=== PATIENT | male | born 1955 | race Caucasian/White ===

== ENCOUNTER 2023-09-23 22:32 | Inpatient (IN) | payer OTHER, MEDICARE, SELFPAY ==
--- NOTE | 2023-09-23 23:12 | US_ITS ---
INDICATION: Choledocholithiasis EXAMINATION: Ultrasound US Abdomen RUQ (limited) TECHNIQUE: Hernadez scale and color doppler imaging was performed of the right upper quadrant. COMPARISON: None. FINDINGS: LIVER: 16.9 cm Hepatopedal portal flow. Diffuse increased echogenicity. Benign 2.7 cm right hepatic cyst.. There is no free fluid. GALLBLADDER AND BILIARY TREE: Nondistended gallbladder with mild dependent sludge. 2 mm gallbladder wall. No pericholecystic fluid or gallbladder wall thickening is demonstrated. The proximal common bile duct measures 7 mm, which is within normal limits for the patient''s age. Songraphic Yu''s sign: None PANCREAS: No focal abnormality is demonstrated in the pancreas. No pancreatic ductal dilatation. RIGHT KIDNEY: 12.0 cm in length. No hydronephrosis. No shadowing nephrolithiasis. Normal cortical echogenicity without focal thinning or scarring. No evidence of cystic or solid mass. Trace perinephric fluid. US/Gallbladder IMPRESSION: Distended gallbladder with mild dependent sludge. No evidence of cholecystitis. Echogenic liver as can be seen with hepatic steatosis. Trace fluid along the right kidney which is nonspecific but can be seen with pyelonephritis. Correlate with urine. Electronically Signed: Todd Aguirre MD at 1:51 EDT ,
--- NOTE | 2023-09-23 23:16 | CON.PCM.GI_ITS ---
HPI Consult Data Date of Consult: 09/23/23 HPI Narrative Reason for Consultation: Obstructive jaundice and pancreatitis HPI Narrative: SOLEDAD GRIFFITHS, is a 67 M who presents as a transfer from outside hospital after being diagnosed with acute pancreatitis and cholestatic hepatitis with jaundice. In 02/2023 he was originally diagnosedwith Cholelithasis with concern Acute Cholecystitis at that time with ongoing epigastric and RUQ pain referred to Surgery.he recovered from that episode but today he presents with worsening abdominal pain to the [facility]. He notes that he has had several of these episodes but this time the episode came on yesterday prior earlier in the morning with nausea without emesis with no fevers or chills and at its worst the pain was aching, dull and sharp intermittently rated 8-9 out of 10 in severity. Work-up in the OSH ED included: VS initial: BP 162/87, HR 70, 91% on RA, RR 16, AF, EKG with SR without acute evidence of ischemia, CBC with WBC 12.2, hemoglobin 15.7, platelet 261 with left shift, CMP with sodium 138, potassium 3.8, chloride 103, CO2 27, glucose 137, BUN/creatinine 21/1.13, GFR greater than 60, AST/ALT 651/832, total bilirubin 5.3, direct bilirubin 4.3, alk phos 167, lipase 11,850, urinalysis with specific remedy 1.015, bilirubin 1, blood 50, urobilinogen 1 otherwise unremarkable, CT abdomen pelvis with contrast with mild stranding in the enlargement of the pancreatic head with findings suspicious of pancreatitis, stranding adjacent to the duodenum presumably secondary to adjacent suspected pancreatitis alternatively could represent duodenitis with gallbladder present. [facility] 02/25/2023 gallbladder ultrasound with cholelithiasis and gallbladder wall thickening with findings consistent with acute cholecystitis. Most recent CMP prior to this presentation 02/25/2023 at the same facility with AST/ALT 17/18, alk phos 67, bilirubin total 0.5, BUN/creatinine 22/1.33. At OSH Medications given: 0.5 mg IV dilaudid, 750 mL NS, IV zosyn. [facility] Medical History (Updated 09/24/23 @ 08:[address] Ignacio Mays MD) Chronic back pain Kidney stones Speech impairment Home Medications NK 09/23/23 [History Last Taken Unknown] Allergy/AdvReac Type Severity Reaction Status Date / Time No Known Allergies Allergy Verified 09/23/23 23:37 Family History (Updated 09/23/23 @ 23:[address] Keshia Mustfaa MD) Mother No problems noted. Father Heart disease Hypertension CAD (coronary artery disease) Myocardial infarction Surgical History (Updated 09/23/23 @ 23:[address] Keshia Mustafa MD) History of back surgery S/P inguinal hernia repair Social History (Updated 09/23/23 @ 23:[address] Keshia Mustafa MD) household members: spouse Smoking Status: Never smoker alcohol intake: never substance use type: does not use ROS ROS Narrative Admission Review of Systems: CONSTITUTIONAL: No weight loss, fever, chills, + weakness or fatigue. HEENT: Eyes: No visual loss, blurred vision, double vision or yellow sclerae. Ears, Nose, Throat: No hearing loss, sneezing, congestion, runny nose or sore throat. SKIN: No rash or itching, lesions, wounds. CARDIOVASCULAR: No chest pain, chest pressure or chest discomfort, palpitations, edema, orthopnea, syncopal events. RESPIRATORY: No shortness of breath, cough or sputum, wheezing, hemoptysis. GASTROINTESTINAL: + anorexia, nausea, abdominal pain. No vomiting. No recent diarrhea (had prior), melena, BRBPR. GENITOURINARY: No dysuria, frequency, urgency or retention. NEUROLOGICAL: No headache, dizziness, syncope, paralysis, ataxia, numbness or tingling in the extremities, focal weakness, change in bowel or bladder control, seizure. MUSCULOSKELETAL: + muscle, back pain, joint pain or stiffness. HEMATOLOGIC: No anemia, bleeding or bruising. LYMPHATICS: No enlarged nodes. No history of splenectomy. PSYCHIATRIC: No history of depression or anxiety. ENDOCRINOLOGIC: No reports of sweating, cold or heat intolerance. No polyuria or polydipsia. ALLERGIES: No history of asthma, hives, eczema or rhinitis. Physical Exam Narrative Physical Examination: General: Awake, alert, oriented x 3 and cooperative, seated upright in the chair, rates pain 5/10, noted speech impediment which she reports is chronic. Skin: Normal color, normal turgor, no icterus, no cyanosis. HEENT: AT/NC, EOMI, PERRLA, moderately dry MM, no carotid bruits or JVD noted. Lungs: CTA bilaterally, moderate effort, mild decrease BL bases, no rales, ronchi or wheezing. Heart: Regular rate and rhythm; no gallop, rub audible. Abdomen: Soft, discomfort to the right upper quadrant and epigastric region but no rebound and no guarding, no appreciated distention, mildly distant bowel sounds, no appreciated HSM. For CT scan and lab values would expect much more significant pain on evaluation but discussed with patient and his any is a very high threshold. Extremities: No cyanosis, clubbing, or edema. Neurological: Patient awake, alert, oriented as noted, cognitive function intact; pupils equally reactive to light and accommodation, cranial nerves grossly normal, moving all 4 extremities, no focal deficits, strength mildly to moderately globally decreased. Psychiatric: Affect appears mildly flat, fatigued, no acute evidence of depres sive or anxiety feelings. Lab / Micro Data 09/24/23 05:13 09/24/23 05:13 Labs: Laboratory Results - last 24 hr 09/24/23 05:13: WBC 11.0, RBC 4.69, Hgb 14.1, Hct 41.9, MCV 89.3, MCH 30.1, MCHC 33.7, RDW Std Deviation 43.4, RDW Coeff of Akil 13.3, Plt Count 226, MPV 9.0, Immature Gran % (Auto) 0.500, Neut % (Auto) 86.7 H, Lymph % (Auto) 7.4 L, [place] % (Auto) 5.2, Eos % (Auto) 0.0, Baso % (Auto) 0.2, Absolute Neuts (auto) 9.6 H, Absolute Lymphs (auto) 0.82 L, Nucleated RBC % 0, Sodium 141, Potassium 3.9, Chloride 111 H, Carbon Dioxide 24.0, Anion Gap 6, BUN 16, Creatinine 1.03, Estim Creat Clear Calc 85.77, Est GFR (MDRD) Af Amer 93, Est GFR (MDRD) Non-Af 77, BUN/Creatinine Ratio 15.5, Glucose 125 H, Calcium 8.3 L, Total Bilirubin 5.40 H, AST 399 H, ALT 731 H, Alkaline Phosphatase 165 H, Total Protein 5.9 L, Albumin 3.4, Globulin 2.5, Albumin/Globulin Ratio 1.4, Lipase 3562 H Imaging Radiology Impression Gallbladder Ultrasound 09/23/23 23:12 IMPRESSION: Distended gallbladder with mild dependent sludge. No evidence of cholecystitis. Echogenic liver as can be seen with hepatic steatosis. Trace fluid along the right kidney which is nonspecific but can be seen with pyelonephritis. Correlate with urine. Electronically Signed: Todd Aguirre MD at 1:51 EDT , Assessment & Plan Assessment/Plan (1) Choledocholithiasis with acute cholecystitis with obstruction: PLAN: Plan 67 y/o M with past medical history of Cholelithasis with concern Acute Cholecystitis at that time with ongoing epigastric and RUQ pain. He presents to the [facility] as direct admission following initial presentation at [facility] ED on 09/23/23 secondary to acute severe onset epigastric and recurrent RUQ abdominal pain, worsening ongoing prompting eventual ED evaluation. Acute choledocholithiasis with acute cholecystitis with obstruction with resulting hyperbilirubinemia, transaminitis and concurrent acute pancreatitis: maintain on aggressive IV fluids, will trend CBC, CMP as well as lipase, maintain n.p.o. status,. Patient will need to undergo ERCP with removal of common bile duct stone. He will likely get a temporary stent placement as he is scheduled for cholecystectomy on 09/28/2023. Continue current regimen. He was explained alternatives, risk, benefits including not withstanding bleeding, infection, sepsis, perforation, need for emergent surgery and . He will have an ASA of 3. Charges/Coding Visit Charges Inpatient E&M: 24559 Init Hosp L3
--- NOTE | 2023-09-23 23:16 | HP.PCM.HOS_ITS ---
HPI - General General Date of Admission: 09/23/23 Date of Service: 09/23/23 Chief Complaint: Abdominal pain, nausea. HPI Narrative The patient is a 67 y/o M w/ PMHx: 02/2023 Diagnosed with Cholelithasis with concern Acute Cholecystitis at that time with ongoing epigastric and RUQ pain referred to Surgery; however from review of [facility] records delayed any intervention secondary to concerns for missed work potential otherwise healthy on no chronic medications who presents to the [facility] as direct admission following initial presentation at [facility] ED on 09/23/23 secondary to acute severe onset epigastric and recurrent RUQ abdominal pain, worsening ongoing prompting eventual ED evaluation. He notes that he has had several of these episodes but this time the episode came on yesterday prior earlier in the morning with nausea without emesis with no fevers or chills and at its worst the pain was aching, dull and sharp intermittently rated 8-9 out of 10 in severity. Following pain medication in the outside facility ED he is currently reporting his pain 5 out of 10 in severity. He denies any current nausea. Work-up in the OSH ED included: VS initial: BP 162/87, HR 70, 91% on RA, RR 16, AF, EKG with SR without acute evidence of ischemia, CBC with WBC 12.2, hemoglobin 15.7, platelet 261 with left shift, CMP with sodium 138, potassium 3.8, chloride 103, CO2 27, glucose 137, BUN/creatinine 21/1.13, GFR greater than 60, AST/ALT 651/832, total bilirubin 5.3, direct bilirubin 4.3, alk phos 167, lipase 11,850, urinalysis with specific remedy 1.015, bilirubin 1, blood 50, urobilinogen 1 otherwise unremarkable, CT abdomen pelvis with contrast with mild stranding in the enlargement of the pancreatic head with findings suspicious of pancreatitis, stranding adjacent to the duodenum presumably secondary to adjacent suspected pancreatitis alternatively could represent duodenitis with gallbladder present with last imaging noted from [facility] 02/25/2023 gallbladder ultrasound with cholelithiasis and gallbladder wall thickening with findings consistent with acute cholecystitis. Most recent CMP prior to this presentation 02/25/2023 at the same facility with AST/ALT 17/18, alk phos 67, bilirubin total 0.5, BUN/creatinine 22/1.33. At OSH Medications given: 0.5 mg IV dilaudid, 750 mL NS, IV zosyn. [facility] Medical History (Updated 09/23/23 @ 23:[address] Keshia Mustafa MD) Chronic back pain Speech impairment Home Medications NK 09/23/23 [History Last Taken Unknown] Allergy/AdvReac Type Severity Reaction Status Date / Time No Known Allergies Allergy Verified 09/23/23 23:37 Family History (Updated 09/23/23 @ 23:[address] Keshia Mustafa MD) Mother No problems noted. Father Heart disease Hypertension CAD (coronary artery disease) Myocardial infarction Surgical History (Updated 09/23/23 @ 23:[address] Keshia Mustafa MD) History of back surgery S/P inguinal hernia repair Social History (Updated 09/23/23 @ 23:[address] Keshia Mustafa MD) household members: spouse Smoking Status: Never smoker alcohol intake: never substance use type: does not use ROS ROS Narrative Admission Review of Systems: CONSTITUTIONAL: No weight loss, fever, chills, + weakness or fatigue. HEENT: Eyes: No visual loss, blurred vision, double vision or yellow sclerae. Ears, Nose, Throat: No hearing loss, sneezing, congestion, runny nose or sore throat. SKIN: No rash or itching, lesions, wounds. CARDIOVASCULAR: No chest pain, chest pressure or chest discomfort, palpitations, edema, orthopnea, syncopal events. RESPIRATORY: No shortness of breath, cough or sputum, wheezing, hemoptysis. GASTROINTESTINAL: + anorexia, nausea, abdominal pain. No vomiting. No recent diarrhea (had prior), melena, BRBPR. GENITOURINARY: No dysuria, frequency, urgency or retention. NEUROLOGICAL: No headache, dizziness, syncope, paralysis, ataxia, numbness or tingling in the extremities, focal weakness, change in bowel or bladder control, seizure. MUSCULOSKELETAL: + muscle, back pain, joint pain or stiffness. HEMATOLOGIC: No anemia, bleeding or bruising. LYMPHATICS: No enlarged nodes. No history of splenectomy. PSYCHIATRIC: No history of depression or anxiety. ENDOCRINOLOGIC: No reports of sweating, cold or heat intolerance. No polyuria or polydipsia. ALLERGIES: No history of asthma, hives, eczema or rhinitis. Physical Exam Narrative Physical Examination: General: Awake, alert, oriented x 3 and cooperative, seated upright in the chair, rates pain 5/10, noted speech impediment which she reports is chronic. Skin: Normal color, normal turgor, no icterus, no cyanosis. HEENT: AT/NC, EOMI, PERRLA, moderately dry MM, no carotid bruits or JVD noted. Lungs: CTA bilaterally, moderate effort, mild decrease BL bases, no rales, ronchi or wheezing. Heart: Regular rate and rhythm; no gallop, rub audible. Abdomen: Soft, discomfort to the right upper quadrant and epigastric region but no rebound and no guarding, no appreciated distention, mildly distant bowel sounds, no appreciated HSM. For CT scan and lab values would expect much more significant pain on evaluation but discussed with patient and his any is a very high threshold. Extremities: No cyanosis, clubbing, or edema. Neurological: Patient awake, alert, oriented as noted, cognitive function intact; pupils equally reactive to light and accommodation, cranial nerves grossly normal, moving all 4 extremities, no focal deficits, strength mildly to moderately globally decreased. Psychiatric: Affect appears mildly flat, fatigued, no acute evidence of depressive or anxiety feelings. Assessment & Plan Assessment/Plan (1) Choledocholithiasis with acute cholecystitis with obstruction: PLAN: Plan The patient is a 67 y/o M w/ PMHx: 02/2023 Diagnosed with Cholelithasis with co ncern Acute Cholecystitis at that time with ongoing epigastric and RUQ pain referred to Surgery; however from review of [facility] records delayed any intervention secondary to concerns for missed work potential otherwise healthy on no chronic medications who presents to the [facility] as direct admission following initial presentation at [facility] ED on 09/23/23 secondary to acute severe onset epigastric and recurrent RUQ abdominal pain, worsening ongoing prompting eventual ED evaluation. #1. Acute choledocholithiasis with acute cholecystitis with obstruction with resulting hyperbilirubinemia, transaminitis and concurrent acute pancreatitis: Will admit to medical surgical floor, maintain on aggressive IV fluids, will trend CBC, CMP as well as lipase, maintain n.p.o. status, continue consultation with gastroenterology and general surgery for ERCP as well as follow-up cholecystectomy once symptoms improving and lipase trends downward, maintain on IV PPI, maintain on IV zosyn, IV/po pain control, will repeat GB US per discussion with Dr. Mays. #2. Elevated BP without HTN diagnosis: Outside facility BP elevated above goal, potentially pain related given acute presentation as noted, continue to monitor and if more consistent with hypertension initiate oral regimen, as needed IV hydralazine in the interim. #3. DVT prophylaxis: SCDs, defer any chemoprophylaxis given planned surgery as noted. Charges/Coding Visit Charges Inpatient E&M: 02091 Init Hosp L2
[2023-09-23 23:40] VITALS: BP 145/89; PULSE 61; RESP 16; TEMP 36.9; O2SAT 95
[2023-09-24] VITALS (13 sets, daily range): BP systolic 114–168; BP diastolic 53–87; PULSE 66–82; RESP 16–18; TEMP 36.5–37.3; O2SAT 91–100; BMI 29.4
[2023-09-24] MEDS: Pantoprazole Sodium 40 MG in 0.9% Normal Saline (100mL MB+) 100 ML 330 MG IV ×3 (01:12→21:03)
[2023-09-24] MEDS: 0.9% Normal Saline (1000mL) 1,000 ML 999 ML IV (01:13)
[2023-09-24] MEDS: 0.9% Saline Lock 10 ML Syringe IV ×4 (01:29→13:33)
[2023-09-24] MEDS: Morphine 2 MG/ML Syringe IV (01:29)
[2023-09-24] MEDS: Ondansetron 4 MG/2 ML Vial IV (02:08)
[2023-09-24] MEDS: 0.9% Normal Saline (1000mL) 1,000 ML 150 ML IV ×4 (02:36→19:49)
[2023-09-24] MEDS: Piperacil/Tazobactam 3.375 GM in 0.9% Normal Saline (50mL MB+) 50 ML IV ×3 (05:33→22:34)
[2023-09-24 05:36] LABS: Absolute Lymphocyte Count 0.82 X10^3/uL (0.83-4.51); Absolute Neutrophil Count 9.6 X10^3/uL (2.0-7.7); Basophil# 0.02 X10^3/uL; Basophil% 0.2 % (0-1); Hematocrit 41.9 % (40-54); Hemoglobin 14.1 g/dL (13.0-16.5); Lymphocyte # 0.82 X10^3/ul (0.83-4.51); Lymphocyte % 7.4 % (19-41); Mean Corp Hgb Conc 33.7 g/dL (32-36); Mean Corpuscular Hgb 30.1 pg (27.0-32.0); Mean Corpuscular Volume 89.3 fL (80-94); Monocyte# 0.57 X10^3/uL; Monocyte% 5.2 % (0-10); NRBC Flagged by Analyzer 0 % (0-5); Neutrophil # 9.55 X10^3/uL (2.7-7.7); Neutrophil % 86.7 % (47-70); Platelet Count 226 K/mm3 (150-450); RBC Distribution Width CV 13.3 % (11.6-14.6); RBC Distribution Width SD 43.4 fl (35.1-43.9); Red Blood Count 4.69 M/mm3 (4.6-6.2)
--- NOTE | 2023-09-24 05:55 | EKGRS_ITS ---
Test Reason : AM EKG Blood Pressure : / mmHG Vent. Rate : 067 BPM Atrial Rate : 067 BPM P-R Int : 200 ms QRS Dur : 082 ms QT Int : 410 ms P-R-T Axes : 047 035 037 degrees QTc Int : 433 ms Sinus rhythm with Premature atrial complexes Otherwise normal ECG No previous ECGs available Confirmed by MIGUELINA KESSLER, SUSU ([id number]), advertising editor IBRAHIMA JOSEPH ([id number]) on 09/25/2023 9:42:15 AM Referred By: DEEP Confirmed By:SUSU MCINTYRE MD
[2023-09-24 06:29] LABS: ALB/GLOB Ratio 1.4 RATIO (0.9-2.4); AST(SGOT) 399 U/L (15-37); Alanine Aminotransfer ALT/SGPT 731 U/L (16-61); Albumin, Serum 3.4 g/dL (3.2-5.0); Alkaline Phosphatase 165 U/L (45-117); Anion Gap 6 (5-15); BUN 16 mg/dL (7-18); BUN/Creat Ratio 15.5 RATIO (10-20); Calcium,Total 8.3 mg/dL (8.5-10.1); Chloride 111 mmol/L (98-107); Creatinine, Serum 1.03 mg/dL (0.70-1.30); EST Glomerular Filtration Rate 77 mL/min (>60); Est Glom Filt Rate - Afr Amer 93 mL/min (>60); Estimated Creatinine Clearance 85.77 ml/min; Globulin 2.5 g/dL (2.2-4.2); Glucose 125 mg/dL (74-106); Lipase 3562 U/L (13-75); Potassium 3.9 mmol/L (3.5-5.1); Protein, Total 5.9 g/dL (6.4-8.2); Sodium Level 141 mmol/L (136-145)
--- NOTE | 2023-09-24 07:56 | CON.PCM.SX_ITS ---
Assessment & Plan Assessment/Plan (1) Acute gallstone pancreatitis: PLAN: Patient is a 67-year-old male who presents on direct transfer from outside hospital with signs and symptoms consistent with acute gallstone pancreatitis. I had a lengthy conversation with patient regarding the normal physiology and the pathophysiology of his condition. This included hand drawings to illustrate relevant points. He expressed understanding after these drawings were made but seems anxious to be discharged already. I shared that we would first need to await gastroenterology evaluation for ERCP and then could consider cholecystectomy this admission. I strongly urged him to allow us to proceed as recommended given this is his second indication for surgery after a prior evaluation showed acute cholecystitis in February. He appears resigned to wait this out. Will await the results of ERCP from today. Recommend trending CMP and lipase. Will follow with serial abdominal exams. Tentatively planning for laparoscopic cholecystectomy with intraoperative cholangiogram 09/28/2023. Therefore patient should be held n.p.o. past midnight the evening before. HPI Consult Data Date of Consult: 09/24/23 HPI Narrative Reason for Consultation: Gallstone pancreatitis HPI Narrative: SOLEDAD GRIFFITHS, is a 67 M who presents to [place] as a direct transfer from [facility] where he presented with signs and symptoms of gallstone pancreatitis. He shares that his pain started on 09/22/2023. Initially denies nausea, but then states every time that he ate it made him feel sick. He shares that this pain was of lesser intensity than what he felt in February when he was diagnosed with cholecystitis, but the fact that it persisted is why he decided to seek evaluation. He denies any associated fevers or chills. Patient's ER workup was reportedly notable for hyperbilirubinemia of 5.3 and his LFTs were reported in the 5 and 600s. Lipase was greater than 1000. Patient has no significant past medical history but patient's prior surgical history includes open umbilical hernia repair with mesh as well as a left groin hernia. [facility] Medical History (Updated 09/24/23 @ 08:[address] Ignacio Mays MD) Chronic back pain Kidney stones Speech impairment Home Medications NK 09/23/23 [History Last Taken Unknown] Allergy/AdvReac Type Severity Reaction Status Date / Time No Known Allergies Allergy Verified 09/23/23 23:37 Family History (Updated 09/23/23 @ 23:[address] Keshia Mustafa MD) Mother No problems noted. Father Heart disease Hypertension CAD (coronary artery disease) Myocardial infarction Surgical History (Updated 09/23/23 @ 23:[address] Keshia Mustafa MD) History of back surgery S/P inguinal hernia repair Social History (Updated 09/23/23 @ 23:[address] Keshia Mustafa MD) household members: spouse Smoking Status: Never smoker alcohol intake: never substance use type: does not use Physical Exam Const alert and oriented x3 Eyes Eyes Narrative: Scleral icterus present Resp normal respiratory effort GI GI Narrative: Hirsute, limited periumbilical scar now well-healed, nondistended, soft, tender to palpation of the epigastrium with mild voluntary guarding Lab / Micro Data 09/24/23 05:13 09/24/23 05:13 Labs: Laboratory Results - last 24 hr 09/24/23 05:13: WBC 11.0, RBC 4.69, Hgb 14.1, Hct 41.9, MCV 89.3, MCH 30.1, MCHC 33.7, RDW Std Deviation 43.4, RDW Coeff of Akil 13.3, Plt Count 226, MPV 9.0, Immature Gran % (Auto) 0.500, Neut % (Auto) 86.7 H, Lymph % (Auto) 7.4 L, [place] % (Auto) 5.2, Eos % (Auto) 0.0, Baso % (Auto) 0.2, Absolute Neuts (auto) 9.6 H, Absolute Lymphs (auto) 0.82 L, Nucleated RBC % 0, Sodium 141, Potassium 3.9, Chloride 111 H, Carbon Dioxide 24.0, Anion Gap 6, BUN 16, Creatinine 1.03, Estim Creat Clear Calc 85.77, Est GFR (MDRD) Af Amer 93, Est GFR (MDRD) Non-Af 77, BUN/Creatinine Ratio 15.5, Glucose 125 H, Calcium 8.3 L, Total Bilirubin 5.40 H, AST 399 H, ALT 731 H, Alkaline Phosphatase 165 H, Total Protein 5.9 L, Albumin 3.4, Globulin 2.5, Albumin/Globulin Ratio 1.4, Lipase 3562 H Imaging Radiology Impression Gallbladder Ultrasound 09/23/23 23:12 IMPRESSION: Distended gallbladder with mild dependent sludge. No evidence of cholecystitis. Echogenic liver as can be seen with hepatic steatosis. Trace fluid along the right kidney which is nonspecific but can be seen with pyelonephritis. Correlate with urine. Electronically Signed: Todd Aguirre MD at 1:51 EDT ,
[2023-09-24] MEDS: proCHLORPERazine 10 MG/2 ML Vial 5 MG IV (07:57)
--- NOTE | 2023-09-24 09:01 | RAD_ITS ---
STUDY: X-RAY -ERCP REASON FOR EXAM: Male, 67 years old. ABD PAIN -- ERCP TECHNIQUE: 8 views of ERCP are available. COMPARISON: No relevant prior comparison study available FINDINGS: Endoscopy and cannulation were carried out by the referring physician. Small filling defects are seen in the proximal common bile duct could be due to air bubbles or retained stones which may be removed or not visualized on the subsequent images. The last image demonstrates questionable common bile duct stent or residual contrast. No radiologist was present during the examination. The fluoroscopy time was 25.9 seconds. The radiation dose is 83.4 mGy. RAD/ERCP Biliary/Pancreas IMPRESSION: ERCP as described above. Electronically Signed: Ran Knott MD at 13:19 EDT ,
--- NOTE | 2023-09-24 09:30 | CASEMGMT ---
RN?CM?PAINTER TUMBLING BARREL?CM?to room to meet with patient for initial transition planning/care coordination?assessment.?RN?CM?introduced self and role at [facility].? Pt voices understanding and consents to?assessment?at this time.? Pt resting in bed in no distress at this time.? Pt is A/O at this time and answers all questions appropriately.?? Care providers, pharmacy, and demographics verified/updated at this time. PCP: Dr Sergio Watson Specialists: pt does not know for sure Preferred Pharmacy: [facility] Retail Insurance: Medical [place] Prescription Benefit:?yes LNOK: , Izabela Living Arrangements: Lives w/his and 29-yr-old son in 2-story home w/4 steps to enter. Bedroom is on 2nd floor. Only one bathroom in home on 1st floor. Denies difficulty w/stairs. Transportation:?Pt states drives self and states no transportation concerns at this time.? also drives. DME: ? Denies using any DME. HHC/SNF: No hx of either. No needs identified. Pt wishes to return home and states has no concerns with going home at time of discharge.? Advised pt to ask for?CM?if any questions/concerns/needs arise.? Voices understanding. PLAN:??Home Mark BSN?RN?CM
--- NOTE | 2023-09-24 10:35 | NURSING ---
pt sent to ERCP
--- NOTE | 2023-09-24 13:00 | OP.ERCP_ITS ---
Patient Name: Dajuan Zimmer Procedure Date: 09/24/2023 12:05 PM Date of : 1955 Age: 67 Procedure: ERCP Indications: Common bile duct stone(s), Jaundice, Elevated liver enzymes, Acute pancreatitis Providers: Juan Parmar DO Medicines: Monitored Anesthesia Care Patient Profile: This is a 67 year old male. Refer to note in patient chart for documentation of history and physical. Patient has symptoms of acute right upper quadrant abdominal pain, acute epigastric abdominal pain and acute jaundice. This patient has no history of previous ERCP. This patient has no history of surgical alteration of the upper digestive tract anatomy. Complications: No immediate complications. Procedure: Pre-Anesthesia Assessment: - Prior to the procedure, a History and Physical was performed, and patient medications and allergies were reviewed. The patient is competent. The risks and benefits of the procedure and the sedation options and risks were discussed with the patient. All questions were answered and informed consent was obtained. Patient identification and proposed procedure were verified by the physician in the pre-procedure area. Mental Status Examination: alert and oriented. Airway Examination: normal oropharyngeal airway and neck mobility. Respiratory Examination: clear to auscultation. CV Examination: normal. Prophylactic Antibiotics: The patient does not require prophylactic antibiotics. Prior Anticoagulants: The patient has taken no anticoagulant or antiplatelet agents. ASA Grade Assessment: II - A patient with mild systemic disease. After reviewing the risks and benefits, the patient was deemed in satisfactory condition to undergo the procedure. The anesthesia plan was to use general anesthesia. Immediately prior to administration of medications, the patient was re-assessed for adequacy to receive sedatives. The heart rate, respiratory rate, oxygen saturations, blood pressure, adequacy of pulmonary ventilation, and response to care were monitored throughout the procedure. The physical status of the patient was re-assessed after the procedure. After obtaining informed consent, the scope was passed under direct vision. Throughout the procedure, the patient's blood pressure, pulse, and oxygen saturations were monitored continuously. The Duodenoscope was introduced through the mouth, and advanced to the duodenum and used to inject contrast into the bile duct and ventral pancreatic duct. The ERCP was accomplished without difficulty. The patient tolerated the procedure well. Scope In: 12:27:18 PM Scope Out: 12:48:41 PM Total Procedure Duration Time 0 hours 21 minutes 23 seconds Findings: The wire preparation machine tender film was normal. The esophagus was successfully intubated under direct vision. The scope was advanced to a normal major papilla in the descending duodenum without detailed examination of the pharynx, larynx and associated structures, and upper GI tract. The upper GI tract was grossly normal. The bile duct was deeply cannulated with the short-nosed traction sphincterotome. Contrast was injected. I personally interpreted the bile duct and pancreatic duct images. There was brisk flow of contrast through the ducts. Image quality was adequate. Contrast extended to the entire biliary tree. The upper third of the main bile duct contained one stone, which was 6 mm in diameter. The main bile duct was mildly dilated and locally dilated, with a stone causing an obstruction. The largest diameter was 7 mm. A straight Roadrunner wire was passed into the biliary tree. A 5 mm biliary sphincterotomy was made with a braided traction (standard) sphincterotome using ERBE electrocautery. The sphincterotomy oozed blood. The biliary tree was swept with a 12 mm balloon starting at the bifurcation. All stones were removed. One 10 Fr by 5 cm temporary stent was placed 5 cm into the common bile duct. Bile flowed through the stent. The stent was in good position. The ventral pancreatic duct was deeply cannulated with the short-nosed traction sphincterotome. Contrast was injected. Opacification of the entire pancreatic ductal system was successful. The maximum diameter of the ducts was 3 mm. The entire opacified area was normal. A 0.035 inch x 260 cm angled Hydra Jagwire was passed into the ventral pancreatic duct. A 5 mm ventral pancreatic sphincterotomy was made with a traction (standard) sphincterotome. There was no post-sphincterotomy bleeding. To find object(s) the ventral pancreatic duct was swept with a 6 mm balloon starting at the pancreatic duct in the body of the pancreas. Nothing was found. One 4 Fr by 5 cm temporary stent was placed 5 cm into the ventral pancreatic duct. Clear fluid flowed through the stent. The stent was in good position. Impression: - The entire main bile duct was mildly dilated, with a stone causing an obstruction. - Choledocholithiasis was found. Complete removal was accomplished by biliary sphincterotomy and balloon extraction. - A biliary sphincterotomy was performed. - The biliary tree was swept. - One temporary stent was placed into the common bile duct. - A pancreatic sphincterotomy was performed. - The ventral pancreatic duct was swept and nothing was found. - One temporary stent was placed into the ventral pancreatic duct. Procedure Code(s): --- Professional --- 29067, Endoscopic retrograde cholangiopancreatography (ERCP); with placement of endoscopic stent into biliary or pancreatic duct, including pre- and post-dilation and guide wire passage, when performed, including sphincterotomy, when performed, each stent [id number], 59, Endoscopic retrograde cholangiopancreatography (ERCP); with placement of endoscopic stent into biliary or pancreatic duct, including pre- and post-dilation and guide wire passage, when performed, including sphincterotomy, when performed, each stent [id number], Endoscopic retrograde cholangiopancreatography (ERCP); with removal of calculi/debris from biliary/pancreatic duct(s) 69424, 26, Combined endoscopic catheterization of the biliary and pancreatic ductal systems, radiological supervision and interpretation CPT copyright 2021 [employer]. All rights reserved. The codes documented in this report are preliminary and upon production control coordinating clerk review may be revised to meet current compliance requirements. Juan Pamrar DO 09/24/2023 12:59:53 PM This report has been signed electronically. Number of Addenda: 0 Note Initiated On: 09/24/2023 12:05 PM
--- NOTE | 2023-09-24 13:00 | OP.CCLET_ITS ---
09/24/2023 Sergio Watson Re : ERCP procedure for Dajuan Watson This procedure was performed on September. My impressions and recommendations are as follows: Impressions : - The entire main bile duct was mildly dilated, with a stone causing an obstruction. - Choledocholithiasis was found. Complete removal was accomplished by biliary sphincterotomy and balloon extraction. - A biliary sphincterotomy was performed. - The biliary tree was swept. - One temporary stent was placed into the common bile duct. - A pancreatic sphincterotomy was performed. - The ventral pancreatic duct was swept and nothing was found. - One temporary stent was placed into the ventral pancreatic duct. Recommendations : My findings are described in the full procedure note, which is enclosed. If I can be of further assistance, please feel free to contact me at . Sincerely, Juan Parmar, 09/24/2023 12:59:53 PM This report has been signed electronically.
--- NOTE | 2023-09-24 13:34 | PN_ITS ---
Subjective Subjective Patient seen and examined. He had no complaints. Abdominal pain had improved. Review of systems otherwise negative. He is due for ERCP and cholecystectomy today. He has remained hemodynamically stable. Objective Data Objective Data Vital Signs: Vital Signs Temp Pulse Resp BP Pulse Ox O2 Del Method 98.9 F 74 16 168/68 H 92 Room Air 09/24/23 13:15 09/24/23 13:15 09/24/23 13:15 09/24/23 13:15 09/24/23 13:15 09/24/23 13:15 Oxygen Delivery Method Room Air Weight: 217 lb 2.485 oz Body Mass Index (BMI) 29.4 Intake & Output: Intake and Output for Last 24 Hours 09/22/23 09/23/23 09/24/23 23:59 23:59 23:59 Intake Total 2270 / 2270 Balance 2270 / 2270 Lab / Micro Data 09/24/23 05:13 09/24/23 05:13 Labs: Laboratory Results - last 24 hr 09/24/23 05:13: WBC 11.0, RBC 4.69, Hgb 14.1, Hct 41.9, MCV 89.3, MCH 30.1, MCHC 33.7, RDW Std Deviation 43.4, RDW Coeff of Akil 13.3, Plt Count 226, MPV 9.0, Immature Gran % (Auto) 0.500, Neut % (Auto) 86.7 H, Lymph % (Auto) 7.4 L, [place] % (Auto) 5.2, Eos % (Auto) 0.0, Baso % (Auto) 0.2, Absolute Neuts (auto) 9.6 H, Absolute Lymphs (auto) 0.82 L, Nucleated RBC % 0, Sodium 141, Potassium 3.9, Chloride 111 H, Carbon Dioxide 24.0, Anion Gap 6, BUN 16, Creatinine 1.03, Estim Creat Clear Calc 85.77, Est GFR (MDRD) Af Amer 93, Est GFR (MDRD) Non-Af 77, BUN/Creatinine Ratio 15.5, Glucose 125 H, Calcium 8.3 L, Total Bilirubin 5.40 H, AST 399 H, ALT 731 H, Alkaline Phosphatase 165 H, Total Protein 5.9 L, Albumin 3.4, Globulin 2.5, Albumin/Globulin Ratio 1.4, Lipase 3562 H Radiography Diagnostic Testing: Radiology Impression Gallbladder Ultrasound 09/23/23 23:12 IMPRESSION: Distended gallbladder with mild dependent sludge. No evidence of cholecystitis. Echogenic liver as can be seen with hepatic steatosis. Trace fluid along the right kidney which is nonspecific but can be seen with pyelonephritis. Correlate with urine. Electronically Signed: Todd Aguirre MD at 1:51 EDT , Endo Retro Cholangiopancreatogram 09/24/23 09:01 IMPRESSION: ERCP as described above. Electronically Signed: Ran Knott MD at 13:19 EDT , Physical Exam Const alert, oriented x3, no apparent distress and well nourished General Appearance: cooperative and well developed HEENT normocephalic, head/scalp atraumatic, moist oral mucous membranes and oropharynx normal Eyes PERRL and EOMs intact bilaterally Neck no lymphadenopathy and supple Lymph Lymphatic: no lymphadenopathy noted and no lymphedema noted Resp normal respiratory effort, normal air movement and clear to auscultation bilaterally Cardio regular rate, regular rhythm, S1 normal heart sound, S2 normal heart sound and no murmurs Palpation: normal PMI GI normal to inspection, nondistended, normoactive bowel sounds GI Narrative: mild epigastric tenderness, no guarding or rebound tenderness. Extremity normal capillary refill, no clubbing, cyanosis or edema and no calf tenderness General Extremity: no tenderness to palpation of joints or extremities Skin General Skin Exam: no breakdown Neuro CN's II-XII intact bilaterally, no focal motor deficits, no sensory deficits noted and deep tendon reflexes 2+ bilaterally Motor Exam: strength 5/5 throughout Psych thought process normal and cooperative Appearance: appropriate Assessment & Plan Assessment/Plan (1) Acute gallstone pancreatitis: (2) Choledocholithiasis with acute cholecystitis with obstruction: PLAN: Plan #Choledocholithiasis with acute pancreatitis * Abdominal pain has improved. * WBC is 11. Total bilirubin is however 5.4. AST, ALT and ALP are elevated. * GI and general surgery on board. For ERCP and cholecystectomy today * ERCP showed choledocholithiasis with entire bile duct being mildly dilated due to the stone causing the obstruction. There was complete removal of the stone by biliary sphincterotomy and balloon extraction and 1 temporary stent was placed into the common bile duct and pancreatic sphincterotomy was performed. * #Acute gallstone pancreatitis * Currently NPO. Continue gentle hydration with IV fluids. IV morphine as needed for pain * #Hyperbilirubinemia: Likely due to choledocholithiasis. Bilirubin is 5.4. Should improve after ERCP and cholecystectomy. #Elevated blood pressure: Does not have known history of hypertension. Likely due to pain. Will monitor. DVT prophylaxis: SCDs Charges/Coding Visit Charges Inpatient E&M: 44997 Subs Hosp L2
[2023-09-24] MEDS: Acetaminophen 325 MG Tablet 650 MG PO (17:21)
[2023-09-24] MEDS: oxyCODONE 5 MG Tablet PO (20:23)
[2023-09-25 01:20] VITALS: BP 149/83; PULSE 74; RESP 16; TEMP 37.1; O2SAT 93
[2023-09-25] MEDS: oxyCODONE 5 MG Tablet PO ×2 (01:25→05:23)
[2023-09-25] MEDS: Ondansetron 4 MG/2 ML Vial IV ×3 (01:25→20:21)
[2023-09-25] MEDS: Acetaminophen 325 MG Tablet 650 MG PO ×4 (01:26→18:31)
[2023-09-25] MEDS: 0.9% Normal Saline (1000mL) 1,000 ML 150 ML IV ×4 (01:29→20:15)
[2023-09-25 05:10] VITALS: BP 150/79; PULSE 68; RESP 16; TEMP 36.7; O2SAT 92
[2023-09-25] MEDS: Piperacil/Tazobactam 3.375 GM in 0.9% Normal Saline (50mL MB+) 50 ML IV ×3 (05:16→22:12)
[2023-09-25] MEDS: proCHLORPERazine 10 MG/2 ML Vial 5 MG IV ×2 (05:22→13:40)
[2023-09-25 06:00] VITALS: BMI 29.4
[2023-09-25 07:09] LABS: Absolute Lymphocyte Count 1.21 X10^3/uL (0.83-4.51); Absolute Neutrophil Count 14.2 X10^3/uL (2.0-7.7); Basophil# 0.03 X10^3/uL; Basophil% 0.2 % (0-1); Eosinophil# 0.03 X10^3/uL; Eosinophils% 0.2 % (0-5); Hematocrit 41.1 % (40-54); Hemoglobin 13.4 g/dL (13.0-16.5); Lymphocyte # 1.21 X10^3/ul (0.83-4.51); Lymphocyte % 7.3 % (19-41); Mean Corp Hgb Conc 32.6 g/dL (32-36); Mean Corpuscular Hgb 29.3 pg (27.0-32.0); Mean Corpuscular Volume 89.9 fL (80-94); Mean Platelet Vol. 9.3 fl (6.2-12.0); Monocyte% 5.4 % (0-10); NRBC Flagged by Analyzer 0 % (0-5); Neutrophil # 14.23 X10^3/uL (2.7-7.7); Neutrophil % 86.1 % (47-70); Platelet Count 201 K/mm3 (150-450); RBC Distribution Width CV 13.3 % (11.6-14.6); RBC Distribution Width SD 43.9 fl (35.1-43.9); Red Blood Count 4.57 M/mm3 (4.6-6.2); White Blood Count 16.5 K/mm3 (4.4-11.0)
[2023-09-25 07:40] VITALS: BP 137/84; PULSE 72; RESP 18; TEMP 36.7; O2SAT 94
[2023-09-25] MEDS: Ensure Plus High Protein 120 ML LIQUID PO (07:41)
[2023-09-25] MEDS: Senna/Docusate Sodium 1 Tablet 2 TABLET PO (07:41)
--- NOTE | 2023-09-25 08:00 | PCM.PN.SRG ---
Subjective Subjective Patient states his abdominal pain is better than last night?patient rates it 2-3 out of 10. Patient white blood count 16?lipase pending and LFTs pending status post ERCP yesterday Objective Data Objective Data Vital Signs: Vital Signs Temp Pulse Resp BP Pulse Ox O2 Del Method 98.1 F 68 16 150/79 H 92 Room Air 09/25/23 05:10 09/25/23 05:10 09/25/23 05:10 09/25/23 05:10 09/25/23 05:10 09/25/23 05:10 Oxygen Delivery Method Room Air Weight: 217 lb 2.485 oz Body Mass Index (BMI) 29.4 Intake & Output: Intake and Output for Last 24 Hours 09/23/23 09/24/23 09/25/23 23:59 23:59 23:59 Intake Total 3997.5 / 4297.5 2430 / 2430 Output Total 250 / 250 Balance 3747.5 / 4047.5 2430 / 2430 Lab / Micro Data 09/25/23 05:41 09/24/23 05:13 Labs: Laboratory Results - last 24 hr 09/25/23 05:41: WBC 16.5 H, RBC 4.57 L, Hgb 13.4, Hct 41.1, MCV 89.9, MCH 29.3, MCHC 32.6, RDW Std Deviation 43.9, RDW Coeff of Akil 13.3, Plt Count 201, MPV 9.3, Immature Gran % (Auto) 0.800, Neut % (Auto) 86.1 H, Lymph % (Auto) 7.3 L, [place] % (Auto) 5.4, Eos % (Auto) 0.2, Baso % (Auto) 0.2, Absolute Neuts (auto) 14.2 H, Absolute Lymphs (auto) 1.21, Nucleated RBC % 0 Radiography Diagnostic Testing: Radiology Impression Gallbladder Ultrasound 09/23/23 23:12 IMPRESSION: Distended gallbladder with mild dependent sludge. No evidence of cholecystitis. Echogenic liver as can be seen with hepatic steatosis. Trace fluid along the right kidney which is nonspecific but can be seen with pyelonephritis. Correlate with urine. Electronically Signed: Todd Aguirre MD at 1:51 EDT , Endo Retro Cholangiopancreatogram 09/24/23 09:01 IMPRESSION: ERCP as described above. Electronically Signed: Ran Knott MD at 13:19 EDT Reading Location ID and State: [facility] / [place] Tel , Service support , Physical Exam Const oriented x3 and no apparent distress Resp normal respiratory effort Cardio regular rate GI soft to palpation GI Narrative: No guarding or rebound Palpation: tender epigastric and RUQ Assessment & Plan Assessment/Plan (1) Acute gallstone pancreatitis: (2) Choledocholithiasis with acute cholecystitis with obstruction: PLAN: Plan Patient was planned for laparoscopic cholecystectomy with Dr. Mays on Thursday. Okay for low-fat liquid diet which may just be clears. CMP and lipase pending Nadira Jennings M.D. Pager: [phone] [facility] [address] [place] [address], [facility], [address] [place] [address] Office: [phone] Charges/Coding Visit Charges Inpatient E&M: 46769 Subs Hosp L2
[2023-09-25 08:10] LABS: Lipase 233 U/L (13-75)
[2023-09-25 08:24] LABS: ALB/GLOB Ratio 1.2 RATIO (0.9-2.4); AST(SGOT) 117 U/L (15-37); Alanine Aminotransfer ALT/SGPT 437 U/L (16-61); Albumin, Serum 3.3 g/dL (3.2-5.0); Alkaline Phosphatase 140 U/L (45-117); Anion Gap 8 (5-15); BUN 12 mg/dL (7-18); BUN/Creat Ratio 12.8 RATIO (10-20); Chloride 104 mmol/L (98-107); Creatinine, Serum 0.94 mg/dL (0.70-1.30); EST Glomerular Filtration Rate 85 mL/min (>60); Est Glom Filt Rate - Afr Amer 103 mL/min (>60); Estimated Creatinine Clearance 93.99 ml/min; Globulin 2.7 g/dL (2.2-4.2); Glucose 123 mg/dL (74-106); Potassium 3.4 mmol/L (3.5-5.1); Sodium Level 135 mmol/L (136-145)
[2023-09-25] MEDS: Pantoprazole Sodium 40 MG in 0.9% Normal Saline (100mL MB+) 100 ML 330 MG IV ×2 (09:18→22:12)
[2023-09-25] MEDS: 0.9% Saline Lock 10 ML Syringe IV ×2 (11:04→13:40)
--- NOTE | 2023-09-25 11:28 | PN_ITS ---
Subjective Subjective Patient seen and examined. He had no active complaints. He denied any abdominal pain, nausea or vomiting. Review of symptoms otherwise negative. He has remained hemodynamically stable. He did have ERCP yesterday with insertion of stent. Objective Data Objective Data Vital Signs: Vital Signs Temp Pulse Resp BP Pulse Ox O2 Del Method 98.1 F 72 18 137/84 H 94 Room Air 09/25/23 07:40 09/25/23 07:40 09/25/23 07:40 09/25/23 07:40 09/25/23 07:40 09/25/23 07:45 Oxygen Delivery Method Room Air Weight: 217 lb 2.485 oz Body Mass Index (BMI) 29.4 Intake & Output: Intake and Output for Last 24 Hours 09/23/23 09/24/23 09/25/23 23:59 23:59 23:59 Intake Total 3997.5 / 4297.5 2590 / 2590 Output Total 250 / 250 Balance 3747.5 / 4047.5 2590 / 2590 Lab / Micro Data 09/25/23 05:41 09/25/23 05:41 Labs: Laboratory Results - last 24 hr 09/25/23 05:41: WBC 16.5 H, RBC 4.57 L, Hgb 13.4, Hct 41.1, MCV 89.9, MCH 29.3, MCHC 32.6, RDW Std Deviation 43.9, RDW Coeff of Akil 13.3, Plt Count 201, MPV 9.3, Immature Gran % (Auto) 0.800, Neut % (Auto) 86.1 H, Lymph % (Auto) 7.3 L, [place] % (Auto) 5.4, Eos % (Auto) 0.2, Baso % (Auto) 0.2, Absolute Neuts (auto) 14.2 H, Absolute Lymphs (auto) 1.21, Nucleated RBC % 0, Sodium 135 L, Potassium 3.4 L, Chloride 104, Carbon Dioxide 23.0, Anion Gap 8, BUN 12, Creatinine 0.94, Estim Creat Clear Calc 93.99, Est GFR (MDRD) Af Amer 103, Est GFR (MDRD) Non-Af 85, BUN/Creatinine Ratio 12.8, Glucose 123 H, Calcium 8.0 L, Total Bilirubin 1.40 H, AST 117 H, ALT 437 H, Alkaline Phosphatase 140 H, Total Protein 6.0 L, Albumin 3.3, Globulin 2.7, Albumin/Globulin Ratio 1.2, Lipase 233 H Radiography Diagnostic Testing: Radiology Impression Endo Retro Cholangiopancreatogram 09/24/23 09:01 IMPRESSION: ERCP as described above. Electronically Signed: Ran Knott MD at 13:19 EDT , Physical Exam Const alert, oriented x3, no apparent distress and well nourished General Appearance: cooperative and well developed HEENT normocephalic, head/scalp atraumatic, moist oral mucous membranes and oropharynx normal Eyes PERRL and EOMs intact bilaterally Neck no lymphadenopathy and supple Lymph Lymphatic: no lymphadenopathy noted and no lymphedema noted Resp normal respiratory effort, normal air movement and clear to auscultation bilaterally Cardio regular rate, regular rhythm, S1 normal heart sound, S2 normal heart sound and no murmurs Palpation: normal PMI GI normal to inspection, nondistended, normoactive bowel sounds GI Narrative: mild epigastric tenderness, no guarding or rebound tenderness. Extremity normal capillary refill, no clubbing, cyanosis or edema and no calf tenderness General Extremity: no tenderness to palpation of joints or extremities Skin General Skin Exam: no breakdown Neuro CN's II-XII intact bilaterally, no focal motor deficits, no sensory deficits noted and deep tendon reflexes 2+ bilaterally Motor Exam: strength 5/5 throughout Psych thought process normal and cooperative Appearance: appropriate Assessment & Plan Assessment/Plan (1) Acute gallstone pancreatitis: (2) Choledocholithiasis with acute cholecystitis with obstruction: PLAN: Plan #Choledocholithiasis with acute pancreatitis * Abdominal pain has improved. * WBC is 16.5 today. Total bilirubin is however down significantly from 5.4 to 1.4 today. AST, ALT and ALP are elevated. * GI and general surgery on board. * ERCP showed choledocholithiasis with entire bile duct being mildly dilated due to the stone causing the obstruction. There was complete removal of the stone by biliary sphincterotomy and balloon extraction and 1 temporary stent was placed into the common bile duct and pancreatic sphincterotomy was performed. * For cholecystectomy on Thursday. * #Acute gallstone pancreatitis * Abdominal pain is improving so we will place on a clear liquid diet to advance slowly as tolerated. * #Hyperbilirubinemia: Likely due to choledocholithiasis. Bilirubin down from 5.4-1.4. Improving after ERCP. #Elevated blood pressure: Does not have known history of hypertension. Likely due to pain. Will monitor. Improved. IV hydralazine prn DVT prophylaxis: SCDs Charges/Coding Visit Charges Inpatient E&M: 41901 Subs Hosp L2
[2023-09-25 13:44] VITALS: BP 165/87; PULSE 78; RESP 18; TEMP 36.8; O2SAT 98
[2023-09-25 20:14] VITALS: BP 132/71; PULSE 67; RESP 18; TEMP 37.1; O2SAT 94
[2023-09-25] MEDS: MELATONIN 3 MG TABLET PO (20:21)
[2023-09-26 02:49] VITALS: BP 145/105; PULSE 74; RESP 18; TEMP 37.3; O2SAT 93
[2023-09-26] MEDS: 0.9% Normal Saline (1000mL) 1,000 ML 150 ML IV (02:51)
[2023-09-26 03:42] VITALS: BMI 31.5
[2023-09-26] MEDS: Piperacil/Tazobactam 3.375 GM in 0.9% Normal Saline (50mL MB+) 50 ML IV ×3 (05:03→21:15)
[2023-09-26] MEDS: Ondansetron 4 MG/2 ML Vial IV ×2 (05:50→21:16)
[2023-09-26 06:24] LABS: Absolute Lymphocyte Count 0.95 X10^3/uL (0.83-4.51); Basophil# 0.04 X10^3/uL; Basophil% 0.2 % (0-1); Eosinophil# 0.05 X10^3/uL; Eosinophils% 0.3 % (0-5); Hematocrit 37.8 % (40-54); Hemoglobin 12.3 g/dL (13.0-16.5); Lymphocyte # 0.95 X10^3/ul (0.83-4.51); Lymphocyte % 5.8 % (19-41); Mean Corp Hgb Conc 32.5 g/dL (32-36); Mean Corpuscular Hgb 28.9 pg (27.0-32.0); Mean Corpuscular Volume 88.7 fL (80-94); Monocyte# 1.02 X10^3/uL; Monocyte% 6.2 % (0-10); NRBC Flagged by Analyzer 0 % (0-5); Neutrophil % 85.5 % (47-70); Platelet Count 218 K/mm3 (150-450); RBC Distribution Width SD 42.3 fl (35.1-43.9); Red Blood Count 4.26 M/mm3 (4.6-6.2); White Blood Count 16.4 K/mm3 (4.4-11.0)
[2023-09-26 06:57] LABS: ALB/GLOB Ratio 0.9 RATIO (0.9-2.4); AST(SGOT) 46 U/L (15-37); Alanine Aminotransfer ALT/SGPT 264 U/L (16-61); Albumin, Serum 2.9 g/dL (3.2-5.0); Alkaline Phosphatase 110 U/L (45-117); Anion Gap 5 (5-15); BUN 6 mg/dL (7-18); BUN/Creat Ratio 8.1 RATIO (10-20); Calcium,Total 8.2 mg/dL (8.5-10.1); Chloride 101 mmol/L (98-107); Creatinine, Serum 0.74 mg/dL (0.70-1.30); EST Glomerular Filtration Rate 112 mL/min (>60); Est Glom Filt Rate - Afr Amer 136 mL/min (>60); Estimated Creatinine Clearance 114.03 ml/min; Globulin 3.1 g/dL (2.2-4.2); Glucose 115 mg/dL (74-106); Potassium 3.2 mmol/L (3.5-5.1); Sodium Level 132 mmol/L (136-145)
--- NOTE | 2023-09-26 08:37 | PN.SURG_ITS ---
Subjective Subjective Patient has not needed anything for pain. Rates the pain at 2/10. Patient is tolerating clears. Patient has had some flatus. Objective Data Objective Data Vital Signs: Vital Signs Temp Pulse Resp BP Pulse Ox O2 Del Method 99.1 F 74 18 145/105 H 93 Room Air 09/26/23 02:49 09/26/23 02:49 09/26/23 02:49 09/26/23 02:49 09/26/23 02:49 09/26/23 02:49 Oxygen Delivery Method Room Air Weight: 232 lb 9.403 oz Body Mass Index (BMI) 31.5 Intake & Output: Intake and Output for Last 24 Hours 09/24/23 09/25/23 09/26/23 23:59 23:59 23:59 Intake Total 3997.5 / 4297.5 4632.5 / 4632.5 1190 / 1190 Output Total 250 / 250 Balance 3747.5 / 4047.5 4632.5 / 4632.5 1190 / 1190 Lab / Micro Data 09/26/23 05:59 09/26/23 05:59 Labs: Laboratory Results - last 24 hr 09/26/23 05:59: WBC 16.4 H, RBC 4.26 L, Hgb 12.3 L, Hct 37.8 L, MCV 88.7, MCH 28.9, MCHC 32.5, RDW Std Deviation 42.3, RDW Coeff of Akil 13.0, Plt Count 218, MPV 9.0, Immature Gran % (Auto) 2.000 H, Neut % (Auto) 85.5 H, Lymph % (Auto) 5.8 L, [place] % (Auto) 6.2, Eos % (Auto) 0.3, Baso % (Auto) 0.2, Absolute Neuts (auto) 14.0 H, Absolute Lymphs (auto) 0.95, Nucleated RBC % 0, Sodium 132 L, Potassium 3.2 L, Chloride 101, Carbon Dioxide 26.0, Anion Gap 5, BUN 6 L, Creatinine 0.74, Estim Creat Clear Calc 114.03, Est GFR (MDRD) Af Amer 136, Est GFR (MDRD) Non-Af 112, BUN/Creatinine Ratio 8.1 L, Glucose 115 H, Calcium 8.2 L, Total Bilirubin 1.10 H, AST 46 H, ALT 264 H, Alkaline Phosphatase 110, Total Protein 6.0 L, Albumin 2.9 L, Globulin 3.1, Albumin/Globulin Ratio 0.9 Physical Exam Const oriented x3 and no apparent distress Resp normal respiratory effort Cardio regular rate GI soft to palpation GI Narrative: Minimally tender in epigastric, no peritoneal signs Inspection: Negative for abdominal distention Assessment & Plan Assessment/Plan (1) Acute gallstone pancreatitis: (2) Choledocholithiasis with acute cholecystitis with obstruction: PLAN: Plan Patient was planned for laparoscopic cholecystectomy with Dr. Mays on Thursday. Okay for clears until then with n.p.o. at midnight. Continue IV Zosyn patient's white blood count still 16 however patient's pain has improved and he has not been taking pain meds. LFTs improving after common bile duct and pancreatic stent Nadira Jennings M.D. Pager: [phone] [facility] [address] [place] [address], [facility], [address] [place] [address] Office: [phone] Charges/Coding Visit Charges Inpatient E&M: 55425 Subs Hosp L2
--- NOTE | 2023-09-26 08:44 | NURSING ---
There was an order for KDur 40meq x1 this morning ordered by Dr. Sue and then another order for KDur 60meq x1 ordered by Dr. Jennings. THis RN called and spoke with Dr. Jennings via phone about duplicate order. Dr. Jennings wanted her 60meq discontinued.
[2023-09-26 09:10] VITALS: BP 139/80; PULSE 86; RESP 18; TEMP 36.6; O2SAT 96
[2023-09-26] MEDS: Potassium Chloride Oral Tablet 20 MEQ 40 MEQ PO (09:13)
[2023-09-26 09:19] VITALS: PULSE 86; RESP 18; O2SAT 96
--- NOTE | 2023-09-26 09:21 | PN_ITS ---
Subjective Subjective Patient seen and examined. He feels well and has no complaints. He denies any abdominal pain. Review of systems otherwise negative. He has remained hemodynamically stable. Objective Data Objective Data Vital Signs: Vital Signs Temp Pulse Resp BP Pulse Ox O2 Del Method 98 F 86 18 139/80 H 96 Room Air 09/26/23 09:10 09/26/23 09:10 09/26/23 09:10 09/26/23 09:10 09/26/23 09:10 09/26/23 09:10 Oxygen Delivery Method Room Air Weight: 232 lb 9.403 oz Body Mass Index (BMI) 31.5 Intake & Output: Intake and Output for Last 24 Hours 09/24/23 09/25/23 09/26/23 23:59 23:59 23:59 Intake Total 3997.5 / 4297.5 4632.5 / 4632.5 1240 / 1240 Output Total 250 / 250 Balance 3747.5 / 4047.5 4632.5 / 4632.5 1240 / 1240 Lab / Micro Data 09/26/23 05:59 09/26/23 05:59 Labs: Laboratory Results - last 24 hr 09/26/23 05:59: WBC 16.4 H, RBC 4.26 L, Hgb 12.3 L, Hct 37.8 L, MCV 88.7, MCH 28.9, MCHC 32.5, RDW Std Deviation 42.3, RDW Coeff of Akil 13.0, Plt Count 218, MPV 9.0, Immature Gran % (Auto) 2.000 H, Neut % (Auto) 85.5 H, Lymph % (Auto) 5.8 L, Hunt % (Auto) 6.2, Eos % (Auto) 0.3, Baso % (Auto) 0.2, Absolute Neuts (auto) 14.0 H, Absolute Lymphs (auto) 0.95, Nucleated RBC % 0, Sodium 132 L, Potassium 3.2 L, Chloride 101, Carbon Dioxide 26.0, Anion Gap 5, BUN 6 L, Creatinine 0.74, Estim Creat Clear Calc 114.03, Est GFR (MDRD) Af Amer 136, Est GFR (MDRD) Non-Af 112, BUN/Creatinine Ratio 8.1 L, Glucose 115 H, Calcium 8.2 L, Total Bilirubin 1.10 H, AST 46 H, ALT 264 H, Alkaline Phosphatase 110, Total Protein 6.0 L, Albumin 2.9 L, Globulin 3.1, Albumin/Globulin Ratio 0.9 Physical Exam Const alert, oriented x3, no apparent distress and well nourished General Appearance: cooperative and well developed HEENT normocephalic, head/scalp atraumatic, moist oral mucous membranes and oropharynx normal Eyes PERRL and EOMs intact bilaterally Neck no lymphadenopathy and supple Lymph Lymphatic: no lymphadenopathy noted and no lymphedema noted Resp normal respiratory effort, normal air movement and clear to auscultation bilaterally Cardio regular rate, regular rhythm, S1 normal heart sound, S2 normal heart sound and no murmurs Palpation: normal PMI GI normal to inspection, nondistended, normoactive bowel sounds, soft to palpation and non-tender Extremity normal capillary refill, no clubbing, cyanosis or edema and no calf tenderness General Extremity: no tenderness to palpation of joints or extremities Skin General Skin Exam: no breakdown Neuro CN's II-XII intact bilaterally, no focal motor deficits, no sensory deficits noted and deep tendon reflexes 2+ bilaterally Motor Exam: strength 5/5 throughout Psych thought process normal and cooperative Appearance: appropriate Assessment & Plan Assessment/Plan (1) Acute gallstone pancreatitis: (2) Choledocholithiasis with acute cholecystitis with obstruction: PLAN: Plan #Choledocholithiasis with acute pancreatitis * Abdominal pain has improved. * WBC is 16.4 today. Total bilirubin is however down significantly from 5.4 to 1.1 today. AST, ALT and ALP have also trended downwards significantly * GI and general surgery on board. * ERCP showed choledocholithiasis with entire bile duct being mildly dilated due to the stone causing the obstruction. There was complete removal of the stone by biliary sphincterotomy and balloon extraction and 1 temporary stent was placed into the common bile duct and pancreatic sphincterotomy was performed. * For cholecystectomy on Thursday. * #Acute gallstone pancreatitis * Abdominal pain is improving so we will place on a clear liquid diet to advance slowly as tolerated. * #Hyperbilirubinemia: Likely due to choledocholithiasis. Bilirubin down from 5.4-1.1. Improving after ERCP. #Elevated blood pressure: Does not have known history of hypertension. On IV hydralazine as needed. Blood pressure has been in the 120s to 160s systolic. continue IV hydralazine for now. DVT prophylaxis: SCDs Charges/Coding Visit Charges Inpatient E&M: 52709 Subs Hosp L2
[2023-09-26] MEDS: Pantoprazole Sodium 40 MG in 0.9% Normal Saline (100mL MB+) 100 ML 330 MG IV ×2 (10:20→21:15)
[2023-09-26] MEDS: Acetaminophen 325 MG Tablet 650 MG PO ×2 (10:29→21:16)
[2023-09-26 15:10] VITALS: BP 130/75; PULSE 85; RESP 18; TEMP 36.6; O2SAT 95
[2023-09-26 15:32] VITALS: PULSE 85; RESP 18; O2SAT 95
[2023-09-26 21:11] VITALS: BP 153/98; PULSE 82; RESP 18; TEMP 36.8; O2SAT 94
[2023-09-27 04:12] VITALS: BMI 31.4
[2023-09-27 04:15] VITALS: BP 162/96; PULSE 75; RESP 18; TEMP 37.2; O2SAT 93
[2023-09-27] MEDS: Acetaminophen 325 MG Tablet 650 MG PO ×2 (04:29→20:03)
[2023-09-27] MEDS: Piperacil/Tazobactam 3.375 GM in 0.9% Normal Saline (50mL MB+) 50 ML IV ×3 (06:32→22:56)
[2023-09-27 06:49] LABS: Absolute Lymphocyte Count 0.94 X10^3/uL (0.83-4.51); Absolute Neutrophil Count 10.4 X10^3/uL (2.0-7.7); Basophil# 0.03 X10^3/uL; Basophil% 0.2 % (0-1); Eosinophil# 0.16 X10^3/uL; Eosinophils% 1.3 % (0-5); Hematocrit 36.4 % (40-54); Hemoglobin 12.3 g/dL (13.0-16.5); Lymphocyte # 0.94 X10^3/ul (0.83-4.51); Lymphocyte % 7.5 % (19-41); Mean Corp Hgb Conc 33.8 g/dL (32-36); Mean Corpuscular Hgb 29.6 pg (27.0-32.0); Mean Corpuscular Volume 87.7 fL (80-94); Mean Platelet Vol. 9.3 fl (6.2-12.0); Monocyte# 0.78 X10^3/uL; Monocyte% 6.3 % (0-10); NRBC Flagged by Analyzer 0 % (0-5); Neutrophil # 10.38 X10^3/uL (2.7-7.7); Neutrophil % 83.2 % (47-70); Platelet Count 268 K/mm3 (150-450); RBC Distribution Width CV 13.1 % (11.6-14.6); RBC Distribution Width SD 42.5 fl (35.1-43.9); Red Blood Count 4.15 M/mm3 (4.6-6.2); White Blood Count 12.5 K/mm3 (4.4-11.0)
[2023-09-27 07:12] LABS: ALB/GLOB Ratio 0.9 RATIO (0.9-2.4); AST(SGOT) 25 U/L (15-37); Alanine Aminotransfer ALT/SGPT 192 U/L (16-61); Albumin, Serum 2.9 g/dL (3.2-5.0); Alkaline Phosphatase 101 U/L (45-117); Anion Gap 6 (5-15); BUN 7 mg/dL (7-18); Calcium,Total 8.8 mg/dL (8.5-10.1); Chloride 103 mmol/L (98-107); EST Glomerular Filtration Rate 120 mL/min (>60); Est Glom Filt Rate - Afr Amer 145 mL/min (>60); Estimated Creatinine Clearance 113.93 ml/min; Globulin 3.4 g/dL (2.2-4.2); Glucose 116 mg/dL (74-106); Potassium 3.2 mmol/L (3.5-5.1); Protein, Total 6.3 g/dL (6.4-8.2); Sodium Level 136 mmol/L (136-145)
--- NOTE | 2023-09-27 08:23 | PN.SURG_ITS ---
Subjective Subjective Lets come down to 12, only took some Tylenol x 1 yesterday for pain denies much flatus yesterday Objective Data Objective Data Vital Signs: Vital Signs Temp Pulse Resp BP Pulse Ox O2 Del Method 98.9 F 75 18 162/96 H 93 Room Air 09/27/23 04:15 09/27/23 04:15 09/27/23 04:15 09/27/23 04:15 09/27/23 04:15 09/27/23 04:15 Oxygen Delivery Method Room Air Weight: 232 lb 2.348 oz Body Mass Index (BMI) 31.4 Intake & Output: Intake and Output for Last 24 Hours 09/25/23 09/26/23 09/27/23 23:59 23:59 23:59 Intake Total 4632.5 / 4632.5 3250 / 3750 1150 / 1150 Balance 4632.5 / 4632.5 3250 / 3750 1150 / 1150 Lab / Micro Data 09/27/23 05:07 09/27/23 05:07 Labs: Laboratory Results - last 24 hr 09/27/23 05:07: WBC 12.5 H, RBC 4.15 L, Hgb 12.3 L, Hct 36.4 L, MCV 87.7, MCH 29.6, MCHC 33.8, RDW Std Deviation 42.5, RDW Coeff of Akil 13.1, Plt Count 268, MPV 9.3, Immature Gran % (Auto) 1.500 H, Neut % (Auto) 83.2 H, Lymph % (Auto) 7.5 L, [place] % (Auto) 6.3, Eos % (Auto) 1.3, Baso % (Auto) 0.2, Absolute Neuts (auto) 10.4 H, Absolute Lymphs (auto) 0.94, Nucleated RBC % 0, Sodium 136, Potassium 3.2 L, Chloride 103, Carbon Dioxide 27.0, Anion Gap 6, BUN 7, Creatinine 0.70, Estim Creat Clear Calc 113.93, Est GFR (MDRD) Af Amer 145, Est GFR (MDRD) Non-Af 120, BUN/Creatinine Ratio 10.0, Glucose 116 H, Calcium 8.8, Total Bilirubin 0.80, AST 25, ALT 192 H, Alkaline Phosphatase 101, Total Protein 6.3 L, Albumin 2.9 L, Globulin 3.4, Albumin/Globulin Ratio 0.9 Assessment & Plan Assessment/Plan (1) Acute gallstone pancreatitis: (2) Choledocholithiasis with acute cholecystitis with obstruction: PLAN: Plan Patient was planned for laparoscopic cholecystectomy with Dr. Mays on Thursday?n.p.o. at midnight. Continue clears Continue IV Zosyn patient's white blood count improved to 12 LFTs improving after common bile duct and pancreatic stent Nadira Jennings M.D. Pager: [phone] [facility] [address] [place] [address], [facility], [address] [place] [address] Office: [phone]
--- NOTE | 2023-09-27 08:58 | PCM.PROGNOTE ---
Subjective Subjective Patient seen and examined. He had no complaints and was resting comfortably in bed. Review systems otherwise negative. He is due for cholecystectomy tomorrow. WBC has trended down to 12.5 today. Objective Data Objective Data Vital Signs: Vital Signs Temp Pulse Resp BP Pulse Ox O2 Del Method 98.9 F 75 18 162/96 H 93 Room Air 09/27/23 04:15 09/27/23 04:15 09/27/23 04:15 09/27/23 04:15 09/27/23 04:15 09/27/23 04:15 Oxygen Delivery Method Room Air Weight: 232 lb 2.348 oz Body Mass Index (BMI) 31.4 Intake & Output: Intake and Output for Last 24 Hours 09/25/23 09/26/23 09/27/23 23:59 23:59 23:59 Intake Total 4632.5 / 4632.5 3250 / 3750 1150 / 1150 Balance 4632.5 / 4632.5 3250 / 3750 1150 / 1150 Lab / Micro Data 09/27/23 05:07 09/27/23 05:07 Labs: Laboratory Results - last 24 hr 09/27/23 05:07: WBC 12.5 H, RBC 4.15 L, Hgb 12.3 L, Hct 36.4 L, MCV 87.7, MCH 29.6, MCHC 33.8, RDW Std Deviation 42.5, RDW Coeff of Akil 13.1, Plt Count 268, MPV 9.3, Immature Gran % (Auto) 1.500 H, Neut % (Auto) 83.2 H, Lymph % (Auto) 7.5 L, [place] % (Auto) 6.3, Eos % (Auto) 1.3, Baso % (Auto) 0.2, Absolute Neuts (auto) 10.4 H, Absolute Lymphs (auto) 0.94, Nucleated RBC % 0, Sodium 136, Potassium 3.2 L, Chloride 103, Carbon Dioxide 27.0, Anion Gap 6, BUN 7, Creatinine 0.70, Estim Creat Clear Calc 113.93, Est GFR (MDRD) Af Amer 145, Est GFR (MDRD) Non-Af 120, BUN/Creatinine Ratio 10.0, Glucose 116 H, Calcium 8.8, Total Bilirubin 0.80, AST 25, ALT 192 H, Alkaline Phosphatase 101, Total Protein 6.3 L, Albumin 2.9 L, Globulin 3.4, Albumin/Globulin Ratio 0.9 Physical Exam Const alert, oriented x3, no apparent distress and well nourished General Appearance: cooperative and well developed HEENT normocephalic, head/scalp atraumatic, moist oral mucous membranes and oropharynx normal Eyes PERRL and EOMs intact bilaterally Neck no lymphadenopathy and supple Lymph Lymphatic: no lymphadenopathy noted and no lymphedema noted Resp normal respiratory effort, normal air movement and clear to auscultation bilaterally Cardio regular rate, regular rhythm, S1 normal heart sound, S2 normal heart sound and no murmurs Palpation: normal PMI GI normal to inspection, nondistended, normoactive bowel sounds, soft to palpation and non-tender Extremity normal capillary refill, no clubbing, cyanosis or edema and no calf tenderness General Extremity: no tenderness to palpation of joints or extremities Skin General Skin Exam: no breakdown Neuro CN's II-XII intact bilaterally, no focal motor deficits, no sensory deficits noted and deep tendon reflexes 2+ bilaterally Motor Exam: strength 5/5 throughout Psych thought process normal and cooperative Appearance: appropriate Assessment & Plan Assessment/Plan (1) Acute gallstone pancreatitis: (2) Choledocholithiasis with acute cholecystitis with obstruction: PLAN: Plan #Choledocholithiasis with acute pancreatitis Abdominal pain has improved. WBC is down to 12.5 today. hyperbilirubinemia has resolved and elevated liver enzymes have also trended down GI and general surgery on board. ERCP showed choledocholithiasis with entire bile duct being mildly dilated due to the stone causing the obstruction. There was complete removal of the stone by biliary sphincterotomy and balloon extraction and 1 temporary stent was placed into the common bile duct and pancreatic sphincterotomy was performed. For cholecystectomy on Thursday. #Acute gallstone pancreatitis Abdominal pain is improving so we will place on a clear liquid diet to advance slowly as tolerated. #Hyperbilirubinemia: Likely due to choledocholithiasis. resolved. #Elevated blood pressure: Does not have known history of hypertension. On IV hydralazine as needed. Blood pressure has been in the 120s to 160s systolic. continue IV hydralazine for now. DVT prophylaxis: SCDs Charges/Coding Visit Charges Inpatient E&M: 24061 Subs Hosp L2
[2023-09-27] MEDS: Docusate Sodium 100 MG Capsule PO (09:39)
[2023-09-27] MEDS: Enoxaparin 40 MG/0.4 ML Syringe SC (09:39)
[2023-09-27] MEDS: Potassium Chloride Oral Tablet 20 MEQ 60 MEQ PO (09:39)
[2023-09-27 09:45] VITALS: BP 144/98; PULSE 90; RESP 16; TEMP 36.7; O2SAT 94
[2023-09-27] MEDS: Pantoprazole Sodium 40 MG in 0.9% Normal Saline (100mL MB+) 100 ML 330 MG IV ×2 (10:32→21:25)
[2023-09-27 16:16] VITALS: BP 148/96; PULSE 80; RESP 16; TEMP 37; O2SAT 94
[2023-09-27 19:53] VITALS: PULSE 90
[2023-09-27] MEDS: Ondansetron 4 MG/2 ML Vial IV (20:03)
[2023-09-27] MEDS: 0.9% Saline Lock 10 ML Syringe IV (20:04)
[2023-09-27 21:19] VITALS: BP 154/103; PULSE 81; RESP 18; TEMP 37.2; O2SAT 95
[2023-09-27] MEDS: MELATONIN 3 MG TABLET PO (22:29)
[2023-09-28] VITALS (10 sets, daily range): BP systolic 130–175; BP diastolic 68–93; PULSE 68–85; RESP 16–18; TEMP 36.6–37.4; O2SAT 90–97; BMI 30.1; BMI 30.2
[2023-09-28 05:26] LABS: Absolute Lymphocyte Count 0.86 X10^3/uL (0.83-4.51); Basophil# 0.04 X10^3/uL; Basophil% 0.4 % (0-1); Eosinophil# 0.24 X10^3/uL; Eosinophils% 2.2 % (0-5); Hematocrit 36.8 % (40-54); Hemoglobin 12.2 g/dL (13.0-16.5); Lymphocyte # 0.86 X10^3/ul (0.83-4.51); Lymphocyte % 7.7 % (19-41); Mean Corp Hgb Conc 33.2 g/dL (32-36); Mean Corpuscular Hgb 29.1 pg (27.0-32.0); Mean Corpuscular Volume 87.8 fL (80-94); Mean Platelet Vol. 8.8 fl (6.2-12.0); Monocyte# 0.78 X10^3/uL; NRBC Flagged by Analyzer 0 % (0-5); Neutrophil # 9.03 X10^3/uL (2.7-7.7); Neutrophil % 80.9 % (47-70); Platelet Count 278 K/mm3 (150-450); RBC Distribution Width CV 13.3 % (11.6-14.6); RBC Distribution Width SD 42.7 fl (35.1-43.9); Red Blood Count 4.19 M/mm3 (4.6-6.2); White Blood Count 11.2 K/mm3 (4.4-11.0)
[2023-09-28 05:48] LABS: ALB/GLOB Ratio 0.8 RATIO (0.9-2.4); AST(SGOT) 20 U/L (15-37); Alanine Aminotransfer ALT/SGPT 136 U/L (16-61); Albumin, Serum 2.7 g/dL (3.2-5.0); Alkaline Phosphatase 98 U/L (45-117); Anion Gap 7 (5-15); BUN 8 mg/dL (7-18); BUN/Creat Ratio 10.1 RATIO (10-20); Calcium,Total 8.6 mg/dL (8.5-10.1); Chloride 104 mmol/L (98-107); EST Glomerular Filtration Rate 103 mL/min (>60); Est Glom Filt Rate - Afr Amer 125 mL/min (>60); Estimated Creatinine Clearance 111.72 ml/min; Globulin 3.4 g/dL (2.2-4.2); Glucose 113 mg/dL (74-106); Potassium 3.1 mmol/L (3.5-5.1); Protein, Total 6.1 g/dL (6.4-8.2); Sodium Level 139 mmol/L (136-145)
[2023-09-28] MEDS: Piperacil/Tazobactam 3.375 GM in 0.9% Normal Saline (50mL MB+) 50 ML IV ×3 (05:54→21:52)
[2023-09-28 06:35] LABS: Partial Thromboplast Time 34.4 Seconds (24.1-36.2)
[2023-09-28 07:04] LABS: International Normalized Ratio 1.2; Prothrombin Time (Protime)PT. 14.9 SECONDS (11.7-14.9)
--- NOTE | 2023-09-28 08:03 | PCM.PN.SRG ---
Subjective Subjective Patient seen examined during AM rounds. Found sitting out of bed to chair. States he feels much better this morning because he is much less distended than he was yesterday. He shares that he is concerned that he is not eating during this hospital stay. He also denies a bowel movement and shares this is out of character for him as he normally is regular with his bowel habits. He denies any significant abdominal pain. Objective Data Objective Data Vital Signs: Vital Signs Temp Pulse Resp BP Pulse Ox O2 Del Method 98.8 F 76 18 145/74 H 93 Room Air 09/28/23 03:47 09/28/23 03:47 09/28/23 03:47 09/28/23 03:47 09/28/23 03:47 09/28/23 03:47 Oxygen Delivery Method Room Air Weight: 222 lb 10.67 oz Body Mass Index (BMI) 30.1 Intake & Output: Intake and Output for Last 24 Hours 09/26/23 09/27/23 09/28/23 23:59 23:59 23:59 Intake Total 3250 / 3750 1470.0 / 1470.0 50 / 50 Balance 3250 / 3750 1470.0 / 1470.0 50 / 50 Lab / Micro Data 09/28/23 04:45 09/28/23 04:45 Labs: Laboratory Results - last 24 hr 09/28/23 04:45: WBC 11.2 H, RBC 4.19 L, Hgb 12.2 L, Hct 36.8 L, MCV 87.8, MCH 29.1, MCHC 33.2, RDW Std Deviation 42.7, RDW Coeff of Akil 13.3, Plt Count 278, MPV 8.8, Immature Gran % (Auto) 1.800 H, Neut % (Auto) 80.9 H, Lymph % (Auto) 7.7 L, [place] % (Auto) 7.0, Eos % (Auto) 2.2, Baso % (Auto) 0.4, Absolute Neuts (auto) 9.0 H, Absolute Lymphs (auto) 0.86, Nucleated RBC % 0, PT 14.9, INR 1.2, APTT 34.4, Sodium 139, Potassium 3.1 L, Chloride 104, Carbon Dioxide 28.0, Anion Gap 7, BUN 8, Creatinine 0.80, Estim Creat Clear Calc 111.72, Est GFR (MDRD) Af Amer 125, Est GFR (MDRD) Non-Af 103, BUN/Creatinine Ratio 10.1, Glucose 113 H, Calcium 8.6, Total Bilirubin 0.70, AST 20, ALT 136 H, Alkaline Phosphatase 98, Total Protein 6.1 L, Albumin 2.7 L, Globulin 3.4, Albumin/Globulin Ratio 0.8 L Physical Exam Const oriented x3 and no apparent distress Resp normal respiratory effort GI GI Narrative: Nondistended, soft, nontender to palpation x 4 quadrants Assessment & Plan Assessment/Plan (1) Acute gallstone pancreatitis: (2) Choledocholithiasis with acute cholecystitis with obstruction: PLAN: Plan Planning for laparoscopic cholecystectomy with intraoperative cholangiogram later today. Continue n.p.o. Continue IV Zosyn patient's white blood count improved to 11 LFTs normalized after common bile duct and pancreatic stent Patient may require bowel regimen postoperatively as he appears to have some element of constipation?likely owing to both his pancreatitis as well as the pain medication for this diagnosis.
[2023-09-28] MEDS: Pantoprazole Sodium 40 MG in 0.9% Normal Saline (100mL MB+) 100 ML 330 MG IV ×2 (10:14→21:07)
[2023-09-28] MEDS: 0.9% Normal Saline (1000mL) 1,000 ML 15 ML IV (13:16)
--- NOTE | 2023-09-28 14:05 | GALL_PTH ---
PATIENT: SOLEDAD GRIFFITHS LOC: MS3 U#:[id number] AGE/SX: 67/M [place] [facility] [place]: Dr. Acacia Vargas DO : 1955 BED: 1 DIS: 09/29/2023 SPEC #: [id number] RECD: 09/28/23 18:07 STATUS: LAKESHIA MCLEAN #: [id number] CIRILO: 09/28/23 14:[address]: Ignacio Mays DEPT: SURGICAL PATHOLOGY RECD BY: Emelia Spencer ENTERED: 09/29/23 10:15 SP TYPE: GALLBLADDE OTHR DR: MD Dr. Acacia Tai DO Dr. Michael Bortz, MD Dr. Nana Yaa Koram, MD Dr. Scott Brown, MD Tissues: Gallbladder, NOS Procedures: Surgery Specimen Level III Comments: @ Ordering doctor for SUIII edited from to @ by ROBBY at 09/29/23 1336 @ Submitting doctor edited from to @ by ROBBY at 09/29/23 1336 HEADER OPERATION: Laparoscopic, cholecystectomy with IOC PRE-OP DIAGNOSIS: Choledocholithiasis/ cholecystitis, pancreatitis TISSUE SUBMITTED: Gallbladder and contents MICROSCOPIC DIAGNOSIS Gallbladder and contents, cholecystectomy: Chronic ulcerated cholecystitis and cholelithiasis. SJ/ 09/30/23 MICROSCOPIC DESCRIPTION Slides are reviewed. GROSS DESCRIPTION Received is one container labeled with the patient's name and designated gallbladder. The specimen consists of a gallbladder measuring 8.0 cm in length and up to 3.5 cm in diameter. The external surface is pink-mullen, smooth and glistening for the most part. Focally it is granular, hemorrhagic and contains cautery artifact. The gallbladder contains small amount of mullen mucoid bile and multiple yellowish-brown stones measuring in aggregate 2.5 x 2.5 x 0.5 cm and 0.1 to 0.7 cm in greatest dimension. The mucosa is bile-stained and without any mass lesions. The gallbladder wall measures up to 0.8 cm in thickness. Public Health Outreach Worker sections from the gallbladder and the cystic duct are submitted in one cassette. / SJ: 09/29/23 TC:3 CPT: 63075
--- NOTE | 2023-09-28 16:10 | RAD_ITS ---
CLINICAL HISTORY: Male, 67 years old. Abdominal pain PROCEDURE: CHOLANGIOGRAM - intraoperative TECHNIQUE: (All elements of maximal sterile barrier technique followed, including US elements as applicable) Fluoroscopy the abdomen was utilized operating room during Intraop Cholangiogram a single image is admitted for interpretation. FINDINGS: A cannula seen in the cystic duct remnant. Contrast is seen throughout the biliary tree with spillage through the ampulla into the duodenum. There is a linear radiolucent defect within the common bile duct likely consistent with a biliary stent. Suspect pancreatic duct stent as well. No round filling defect to suggest common bile duct stone. RAD/Cholangiogram/ O R,Initial IMPRESSION: No common bile duct stone. Electronically Signed: Agusto Howard MD at 21:03 EDT ,
[2023-09-28] MEDS: Lactated Ringers 1,000 ML 15 ML IV (16:25)
[2023-09-28] MEDS: Bupivacaine Mpf 0.5% 30 ML VIAL (16:52)
--- NOTE | 2023-09-28 17:13 | OP.PCM_ITS ---
Report of Operation Date of Procedure: 09/28/23 Pre-Operative Diagnosis: 1. Gallstone pancreatitis 2. History of cholecystitis Post-Operative Diagnosis: Severe chronic cholecystitis and recent gallstone pancreatitis Surgery/Procedure Performed:: Laparoscopic cholecystectomy with intraoperative cholangiogram Description of Surgical Findings:: ? Evidence of severe chronic inflammation adhesions between the omentum extending off the hepatic flexure to the anterior surface of the gallbladder ? Markedly thickened gallbladder wall ? Cholangiogram showing normal antegrade filling of the common bile duct into the duodenum without signs of obstruction Surgeon: Ignacio Mays drapery seamstress: Yousuf Buckley Type of Anesthesia: General/Supplemental Anesthesiologist: Daniel Ann Specimen's removed: Gallbladder Estimated Blood Loss (mL): 75 Description of Procedure: After proper identification in the preoperative holding area the patient was brought to the operating room where he was positioned supine on the operating room table. Preoperatively SCDs were placed and antibiotics were administered. General anesthesia was then induced. Patient's abdomen was prepped and draped in usual sterile fashion. A formal timeout was conducted to confirm both patient and the procedure. Procedure was begun with a supraumbilical incision which was extended deeply down to the level of the fascia. The fascia was elevated and incised, as well as the peritoneum. A finger sweep was performed to ensure there were no underlying adhesions and a 12 mm balloon trocar was inserted. However some adhesions were palpated and yet we were able to place a trocar and visualize the liver and the right upper quadrant so I elected to deal with them in a delayed fashion. Pneumoperitoneum was established at 15 mmHg. Three additional trocars (all 5 mm) were placed in the epigastrium and in the right upper quadrant. Inspection of the peritoneum revealed no inadvertent injury to the viscera below but upon placing a scope through the right upper quadrant port and looking back on the supraumbilical incision we withdrew the balloon trocar and could see omental adhesions to the anterior abdominal wall in the region of the patient's umbilical hernia mesh. Digitally palpating the underside of the peritoneum through patient's supraumbilical incision I did not detect any bowel so these adhesions were divided with the use of energized scissors. The 12 mm Francis trocar then was replaced and attention was directed once again to the right upper quadrant. The gallbladder was not immediately visualized given severe inflammation of the right upper quadrant. I was able to distinguish both the hepatic flexure of the colon as well as a white and rind about the body of the gallbladder. The gallbladder fundus was then grasped and carefully elevated cephalad. Using careful dissection the attachments to the gallbladder were thinned with blunt dissection and then divided with the use of electrocautery. Gradually I was able to place the gallbladder in full traction and the peritoneum was opened and the structures of the hepatocystic triangle were delineated. A dilated cystic duct and large cystic artery were dissected out. There was dense inflammation along the base of the gallbladder and dissection led to significant oozing. Given the size of the duct I reevaluated our dissection and confirmed that there were no other ductal structures in the r egion of the gallbladder neck. Confirming none, I requested a 12 mm port and replaced my 5 mm epigastric port and then used a 10 mm Hem-o-annie clip system to occlude the duct distally. The cystic duct was singly clipped and partially divided with a ductotomy. The proximal duct was milked of any debris. Using an [place] clamp, a cholangiocatheter was fed into the proximal segment of the cystic duct and clamped into place. Under fluoroscopy a cholangiogram was then obtained showing a standard length cystic duct flowing into a common bile duct with unobstructed antegrade flow of contrast into the duodenum via a common bile duct stent. There was also retrograde flow through the common hepatic duct into the right and left hepatic ducts. Satisfied with this result, the cholangiocatheter was withdrawn and the proximal cystic duct was sealed with clips and the cystic duct was completely transected. The same process was used for the cystic artery. The gallbladder was then removed from the gallbladder fossa with the use of electrocautery. An inadvertent rent was made in the posterior aspect of the gallbladder body resulting in local spillage of the bile from the gallbladder. A grasper was placed across this inadvertent rent to preclude any further spillage and the bile was suctioned free of the peritoneum using laparoscopic suction computer systems technology instructor. Once the gallbladder was fully removed, selective electrocautery was used to obtain hemostasis in the gallbladder fossa. The gallbladder was placed in an Endo Catch bag and removed from the peritoneum. Morison's pouch was irrigated and the effluent was suctioned free of the peritoneum. Hemostasis was again confirmed. Pneumoperitoneum was evacuated and the fascia of the 12 mm port sites was closed with #1Vicryl in a [id number] fashion. A total of 30 mL of anesthetic was injected at the port sites for postoperative pain control. The skin of each port site was then closed in subcuticular fashion using 4-0 Monocryl. Steri-Strips and bandages were applied as dressings. Patient tolerated the procedure well without any apparent complications. On emergence from their anesthetic the patient was taken to PACU for ongoing recovery. Complications None Admit VTE Documentation VTE Mechan Device Prophylaxis: SCD's Procedures Digestive [id number]-49xxx: [id number] Laparo cholecystectomy/graph
--- NOTE | 2023-09-28 17:34 | PN.HOSP_ITS ---
Reason for Visit Reason for Visit: Abdominal pain/nausea Subjective Subjective Patient is a 67-year-old white male who presented to outside hospital and transferred here as a direct admission from [facility] emergency department where he presented for abdominal pain and nausea. In February 2023 he was diagnosed with cholelithiasis with concern for acute cholecystitis and had ongoing epigastric pain and right upper quadrant pain at which time he was referred to general surgery however he had delayed follow-up due to concerns for missed work and he had been otherwise healthy. He then presented to [facility] on 09/23/2023 for severe acute onset epigastric pain and recurrent right upper quadrant pain. Vital signs on presentation there were overtly un remarkable. EKG showed no acute ischemia. CBC showed mild leukocytosis with a white count of 12.2 but was otherwise unremarkable. CMP showed normal electrolytes and renal function but he had an AST of 651 and ALT of 832 with a bilirubin of 5.3 and a direct bilirubin of 4.3. His alk phos was 167 and his lipase was 11,850. His UA was not suggestive of infection but did show dehydration. CT of the abdomen pelvis was performed and showed mild stranding and enlargement of the pancreatic head with findings suspicious for pancreatitis as well as stranding in the adjacent duodenum secondary to the pancreatitis. Previous gallbladder ultrasound done in February showed cholelithiasis with gallbladder wall thickening. He was given IV pain medication IV fluids as well as Zosyn and transferred here for ongoing care. He was admitted to the medical floor and general surgery and gastroenterology were consulted. He was diagnosed with acute gallstone pancreatitis and taken for an ERCP on 09/24/2023. ERCP showed dilation of the entire bile duct with choledocholithiasis. Stone was removed with biliary sphincterotomy and balloon extraction and a temporary stent was placed in the common bile duct. Pancreatic sphincterotomy was also performed with sweeping of the ventral pancreatic duct performed and nothing was found. 1 temporary stent was also placed in the ventral pancreatic duct. He wa s followed by general surgery and plan was for laparoscopic cholecystectomy which was done on 09/28/[address] Mays after his pancreatitis was allowed to calm down. His liver functions have since normalized. Patient reported some mild right upper quadrant discomfort but was otherwise feeling well prior to his surgery. Had no complaints today. Objective Data Objective Data Vital Signs: Vital Signs Temp Pulse Resp BP Pulse Ox O2 Del Method 99.4 F H 70 16 175/93 H 96 Room Air 09/28/23 11:54 09/28/23 11:54 09/28/23 11:54 09/28/23 11:54 09/28/23 11:54 09/28/23 11:54 Oxygen Delivery Method Room Air Weight: 101 kg Body Mass Index (BMI) 30.2 Intake & Output: Intake and Output for Last 24 Hours 09/26/23 09/27/23 09/28/23 23:59 23:59 23:59 Intake Total 3250 / 3750 1470.0 / 1470.0 260 / 260 Balance 3250 / 3750 1470.0 / 1470.0 260 / 260 Lab / Micro Data 09/28/23 04:45 09/28/23 04:45 Labs: Laboratory Results - last 24 hr 09/28/23 04:45: WBC 11.2 H, RBC 4.19 L, Hgb 12.2 L, Hct 36.8 L, MCV 87.8, MCH 29.1, MCHC 33.2, RDW Std Deviation 42.7, RDW Coeff of Akil 13.3, Plt Count 278, MPV 8.8, Immature Gran % (Auto) 1.800 H, Neut % (Auto) 80.9 H, Lymph % (Auto) 7.7 L, [place] % (Auto) 7.0, Eos % (Auto) 2.2, Baso % (Auto) 0.4, Absolute Neuts (auto) 9.0 H, Absolute Lymphs (auto) 0.86, Nucleated RBC % 0, PT 14.9, INR 1.2, APTT 34.4, Sodium 139, Potassium 3.1 L, Chloride 104, Carbon Dioxide 28.0, Anion Gap 7, BUN 8, Creatinine 0.80, Estim Creat Clear Calc 111.72, Est GFR (MDRD) Af Amer 125, Est GFR (MDRD) Non-Af 103, BUN/Creatinine Ratio 10.1, Glucose 113 H, Calcium 8.6, Total Bilirubin 0.70, AST 20, ALT 136 H, Alkaline Phosphatase 98, Total Protein 6.1 L, Albumin 2.7 L, Globulin 3.4, Albumin/Globulin Ratio 0.8 L Physical Exam Const alert, oriented x3, no apparent distress, healthy appearing and well nourished Constitutional Narrative: Obese, upper middle-aged, white male, sitting up in a chair at the bedside, appears comfortable and nontoxic HEENT head/scalp atraumatic and moist oral mucous membranes Head and Scalp: normocephalic Resp normal respiratory effort, no retractions and no use of accessory muscles Auscultation: Negative for rales, rhonchi or wheezes Cardio regular rate, regular rhythm, S1 normal heart sound, S2 normal heart sound, no murmurs, no rub, no gallops and no clicks GI normal to inspection, nondistended, normoactive bowel sounds and soft to palpation; Negative for non-tender GI Narrative: Very mild right upper quadrant tenderness Extremity no clubbing, cyanosis or edema Extremity Narrative: Pedal pulses are 2+ Neuro oriented x3, moves all extremities and no focal motor deficits Speech: speech normal Psych Psych Narrative: Affect is somewhat strange, interacts appropriately and eye contact is good Assessment & Plan Assessment/Plan (1) Acute gallstone pancreatitis: (2) Choledocholithiasis with acute cholecystitis with obstruction: PLAN: Plan Acute gallstone pancreatitis -Resolved Choledocholithiasis with acute cholecystitis and obstruction -Status post ERCP on 09/24/2023 with stone removal and temporary stent placement into the biliary duct and ventral pancreatic duct -LFTs have normalized -Cholecystectomy planned for today Leukocytosis -Resolving Mild anemia -Hemoglobin is stabilized in the mid 12 range -Appears to be stable -Would recommend outpatient follow-up for repeat hemoglobin in 2 to 3 weeks Hypokalemia -potassium is 3.1 -Replacement given -Check a.m. magnesium and potassium level given persistent hypokalemia Transaminitis/hyperbilirubinemia -resolved Elevated blood pressure -no known history of hypertension -Continue to monitor and if remains persistently elevated will start antihypertensives prior to discharge -Recommend outpatient follow-up with PCP in 1 to 2 weeks after discharge -Continue as needed IV hydralazine DVT prophylaxis -continue SCDs in light of pending surgical intervention CODE STATUS Full code Charges/Coding Visit Charges Inpatient E&M: 28272 Subs Hosp L2
[2023-09-28] MEDS: 0.9% Normal Saline (250mL Bag) 250 ML 15 ML IV (21:07)
[2023-09-29 05:39] VITALS: BMI 30.2
[2023-09-29] MEDS: Piperacil/Tazobactam 3.375 GM in 0.9% Normal Saline (50mL MB+) 50 ML IV (05:43)
[2023-09-29 06:28] VITALS: BP 153/81; PULSE 68; RESP 16; TEMP 36.6; O2SAT 95
[2023-09-29 07:08] LABS: Absolute Neutrophil Count 7.7 X10^3/uL (2.0-7.7); Basophil# 0.05 X10^3/uL; Basophil% 0.5 % (0-1); Eosinophil# 0.11 X10^3/uL; Eosinophils% 1.1 % (0-5); Hematocrit 37.1 % (40-54); Hemoglobin 12.3 g/dL (13.0-16.5); Lymphocyte % 12.4 % (19-41); Mean Corp Hgb Conc 33.2 g/dL (32-36); Mean Corpuscular Hgb 29.3 pg (27.0-32.0); Mean Corpuscular Volume 88.3 fL (80-94); Mean Platelet Vol. 8.5 fl (6.2-12.0); Monocyte# 0.84 X10^3/uL; NRBC Flagged by Analyzer 0 % (0-5); Neutrophil # 7.68 X10^3/uL (2.7-7.7); Neutrophil % 73.5 % (47-70); Platelet Count 289 K/mm3 (150-450); RBC Distribution Width CV 13.4 % (11.6-14.6); RBC Distribution Width SD 43.8 fl (35.1-43.9); White Blood Count 10.5 K/mm3 (4.4-11.0)
[2023-09-29 07:25] LABS: ALB/GLOB Ratio 0.8 RATIO (0.9-2.4); AST(SGOT) 25 U/L (15-37); Alanine Aminotransfer ALT/SGPT 108 U/L (16-61); Albumin, Serum 2.6 g/dL (3.2-5.0); Alkaline Phosphatase 92 U/L (45-117); Anion Gap 3 (5-15); BUN 11 mg/dL (7-18); BUN/Creat Ratio 12.5 RATIO (10-20); Calcium,Total 8.3 mg/dL (8.5-10.1); Chloride 104 mmol/L (98-107); Creatinine, Serum 0.88 mg/dL (0.70-1.30); EST Glomerular Filtration Rate 92 mL/min (>60); Est Glom Filt Rate - Afr Amer 112 mL/min (>60); Estimated Creatinine Clearance 101.75 ml/min; Globulin 3.4 g/dL (2.2-4.2); Glucose 89 mg/dL (74-106); Potassium 3.3 mmol/L (3.5-5.1); Sodium Level 137 mmol/L (136-145)
[2023-09-29 08:55] VITALS: BP 142/82; PULSE 87; RESP 16; TEMP 37; O2SAT 97
[2023-09-29] MEDS: Pantoprazole Sodium 40 MG in 0.9% Normal Saline (100mL MB+) 100 ML 330 MG IV (09:06)
[2023-09-29] MEDS: 0.9% Saline Lock 10 ML Syringe IV (09:07)
[2023-09-29] MEDS: Potassium Chloride Oral Tablet 20 MEQ PO (09:09)
[2023-09-29] MEDS: Docusate Sodium 100 MG Capsule PO (09:10)
[2023-09-29] MEDS: Enoxaparin 40 MG/0.4 ML Syringe SC (09:10)
--- NOTE | 2023-09-29 10:02 | PN.SURG_ITS ---
Subjective Subjective Patient evaluated resting comfortably in bed. Patient denies any abdominal or incisional pain/discomfort. He denies any nausea, vomiting. He is tolerating his current diet. He voices readiness to go home today. Objective Data Objective Data Vital Signs: Vital Signs Temp Pulse Resp BP Pulse Ox O2 Del Method 98.6 F 87 16 142/82 H 97 Room Air 09/29/23 08:55 09/29/23 08:55 09/29/23 08:55 09/29/23 08:55 09/29/23 08:55 09/29/23 08:55 Oxygen Delivery Method Room Air Weight: 223 lb 8.78 oz Body Mass Index (BMI) 30.2 Intake & Output: Intake and Output for Last 24 Hours 09/27/23 09/28/23 09/29/23 23:59 23:59 23:59 Intake Total 1470.0 / 1470.0 1370 / 1370 50 / 50 Output Total 250 / 250 Balance 1470.0 / 1470.0 1120 / 1120 50 / 50 Lab / Micro Data 09/29/23 06:40 09/29/23 06:40 Labs: Laboratory Results - last 24 hr 09/29/23 06:40: WBC 10.5, RBC 4.20 L, Hgb 12.3 L, Hct 37.1 L, MCV 88.3, MCH 29.3, MCHC 33.2, RDW Std Deviation 43.8, RDW Coeff of Akil 13.4, Plt Count 289, MPV 8.5, Immature Gran % (Auto) 4.500 H, Neut % (Auto) 73.5 H, Lymph % (Auto) 12.4 L, [place] % (Auto) 8.0, Eos % (Auto) 1.1, Baso % (Auto) 0.5, Absolute Neuts (auto) 7.7, Absolute Lymphs (auto) 1.30, Nucleated RBC % 0, Sodium 137, Potassium 3.3 L, Chloride 104, Carbon Dioxide 30.0, Anion Gap 3 L, BUN 11, Creatinine 0.88, Estim Creat Clear Calc 101.75, Est GFR (MDRD) Af Amer 112, Est GFR (MDRD) Non-Af 92, BUN/Creatinine Ratio 12.5, Glucose 89, Calcium 8.3 L, Magnesium 2.0, Total Bilirubin 0.50, AST 25, ALT 108 H, Alkaline Phosphatase 92, Total Protein 6.0 L, Albumin 2.6 L, Globulin 3.4, Albumin/Globulin Ratio 0.8 L Radiography Diagnostic Testing: Radiology Impression Cholangiogram 09/28/23 16:10 IMPRESSION: No common bile duct stone. Electronically Signed: Agusto Howard MD at 21:03 EDT , Physical Exam GI GI Narrative: Abdomen- soft, nontender. Incisions c/d/i. Small amount of erythema noted to the right of the umbilical incision. No active drainage is noted. Assessment & Plan Assessment/Plan (1) Choledocholithiasis with acute cholecystitis with obstruction: (2) Acute gallstone pancreatitis: PLAN: Plan I have evaluated this patient in conjunction with Dr. Mays. He has independently evaluated this patient. Labs reviewed. Potassium replaced Increase diet to regular- low fat Plan to have patient follow-up as an outpatient in 10-14 days Patient ready for discharge from surgical standpoint Charges/Coding Visit Charges Inpatient E&M: 58356 Subs Hosp L1 (no charge; post-op)
--- NOTE | 2023-09-29 12:30 | CHAPLAIN ---
Type of Pastoral Visit _x__ Initial Visit ___ Follow-up Visit ___ On-call Visit ___ General Patient Visit ___ Spiritual Assessment ___ Family Conference ___ Bereavement ___ Rapid Response ___ Code Blue ___ Other (describe below) Pastoral Care Referral From _x__ Patient ___ Family ___ Nurse ___ Physician ___ Clip On Sunglasses Inspector ___ Tallow Maker ___ Other (describe below) Sacrament/Intervention _x__ Active listening ___ Anointing ___ Zoroastrianism ___ Bereavement ___ Communion ___ Yeimi exploration ___ _x__ Life review _x__ Prayer ___ Reconciliation ___ Sacrament of Sick ___ Supportive presence ___ Wedding ___ Other (describe below) Pastoral Comments family members are in the room with patient; patient indicates that he is improved, the situation corrected, and he is going home; pt states that he has a yazidi for support and that family is helpful; prayer is welcomed by pt and family; offer of support to family is given
--- NOTE | 2023-09-29 12:38 | DS.PCM_ITS ---
Providers Date of Admission: 09/23/23 Date of Discharge: 09/29/23 Primary Care Physician: Dr. Sergio Watson MD Consultations 09/23/23 22:30 Consult: Gastroenterology Routine Consulting Provider: [facility] Reason for Consult: Choledocholithiasis, elevated bili/LFTs EMERGENT Consult: No Notified: Yes Date Notified: 09/23/23 Time Notified: 22:32 Method of Notification: ED Physician Initiated Consult: General Surgery Routine Consulting Provider: Ignacio Mays Reason for Consult: choledocholithiasis/cholecystitis, pancreatitis EMERGENT Consult: No Notified: Yes Date Notified: 09/23/23 Time Notified: 22:32 Method of Notification: Verbal Reason For Visit: CHOLEDOCHOLITHIASIS/CHOLLECYSTITIS, PANCREATITIS, Diagnosis Discharge Diagnosis (1) Choledocholithiasis with acute cholecystitis with obstruction: Status: Acute Code(s): K80.43 - Calculus of bile duct with acute cholecystitis with obstruction (2) Acute gallstone pancreatitis: Status: Acute Code(s): K85.10 - Biliary acute pancreatitis without necrosis or infection Plan Medications at Discharge Home Medications oxycodone 5 mg tablet 5 mg PO Q6H PRN pain 3 days #12 tabs 09/29/23 Hospital Course Operations cholecystecomy, ERCP and - Procedures - (Gallbladder ultrasound) Summary of Care Provided Minutes Spent on Discharge: 37 Hospital Course: Mr. Zimmer is a 67-year-old white male who presented to outside hospital and transferred here as a direct admission from [facility] emergency department where he presented for abdominal pain and nausea. In February 2023 he was diagnosed with cholelithiasis with concern for acute cholecystitis and had ongoing epigastric pain and right upper quadrant pain at which time he was referred to general surgery however he had delayed follow-up due to concerns for missed work and he had been otherwise healthy. He then presented to [facility] on 09/23/2023 for severe acute onset epigastric pain and recurrent right upper quadrant pain. Vital signs on presentation there were overtly unremarkable. EKG showed no acute ischemia. CBC showed mild leukocytosis with a white count of 12.2 but was otherwise unremarkable. CMP showed normal electrolytes and renal function but he had an AST of 651 and ALT of 832 with a bilirubin of 5.3 and a direct bilirubin of 4.3. His alk phos was 167 and his lipase was 11,850. His UA was not suggestive of infection but did show dehydration. CT of the abdomen pelvis was performed and showed mild stranding and enlargement of the pancreatic head with findings suspicious for pancreatitis as well as stranding in the adjacent duodenum secondary to the pancreatitis. Previous gallbladder ultrasound done in February showed cholelithiasis with gallbladder wall thickening. He was given IV pain medication IV fluids as well as Zosyn and transferred here for ongoing care. He was admitted to the medical floor and general surgery and gastroenterology were consulted. He was diagnosed with acute gallstone pancreatitis and taken for an ERCP on 09/24/2023. ERCP showed dilation of the entire bile duct with choledocholithiasis. Stone was removed with biliary sphincterotomy and balloon extraction and a temporary stent was placed in the common bile duct. Pancreatic sphincterotomy was also performed with sweeping of the ventral pancreatic duct performed and nothing was found. 1 temporary stent was also placed in the ventral pancreatic duct. On 09/28/2023 he was taken for laparoscopic cholecystectomy with Dr. Mays he tolerated the procedure well and had good bowel function following was able to tolerate clear liquids and diet was advanced to regular without any issue. His liver enzymes had almost normalized at the time of discharge and the patient was having only postoperative pain. He was able to be discharged home in stable condition on 09/29/2023. We have follow-ups made for him with Dr. Mays and Dr. Parmar. He was advised to start a bland diet and advance slowly and postoperative instructions were given him by general surgery. I have also asked him to follow-up with his primary care physician within the next 1 month. Prescription for 3-day supply of oxycodone for postoperative pain was sent to the local pharmacy prior to discharge. His blood pressure was noted to be elevated on and off throughout his hospitalization. Is unclear if this is related to his acute illness or if he has blood pressure issues at baseline. I have encouraged him to follow-up with his primary care physician and if he is consistently greater than 130/80 he may need to be considered for initiation of antihypertensives. Discharge diagnoses: Acute gallstone pancreatitis-resolved Choledocholithiasis-resolved Acute cholecystitis with obstruction-resolved Leukocytosis-resolved Mild anemia Hypokalemia-resolved Transaminitis-resolved Hyperbilirubinemia-resolved Elevated blood pressure Obesity Physical Exam Narrative Patient states he is feeling well. Tolerating a diet without any difficulty. Anxious to go home if possible. Const alert, oriented x3, no apparent distress, no limitations, healthy appearing and well nourished; Negative for average body habitus Constitutional Narrative: Obese, upper middle-aged, white male, sitting up in bed, appears comfortable and nontoxic, family at bedside General Appearance: cooperative, comfortable, well kempt and well developed Orientation / Consciousness: awake, oriented to person, oriented to place and oriented to time Exam Limitations: no limitations Nutritional Appearance: obese HEENT normocephalic, head/scalp atraumatic, hearing grossly normal bilaterally and moist oral mucous membranes HEENT Narrative: Dentition is poor, Mallampati is 2, no thrush Eyes PERRL, EOMs intact bilaterally and conjunctivae normal Eyes Narrative: No scleral icterus Neck no lymphadenopathy and supple Neck Narrative: Trachea midline, no thyroid enlargement Resp normal respiratory effort, normal air movement, no retractions, no use of accessory muscles and clear to auscultation bilaterally Auscultation: Negative for rales, rhonchi or wheezes Cardio regular rate, regular rhythm, S1 normal heart sound, S2 normal heart sound, no murmurs, no rub, no gallops and no clicks Palpation: normal PMI GI normal to inspection, nondistended, normoactive bowel sounds and soft to palpation; Negative for non-tender GI Narrative: Postoperative dressings intact with no significant drainage, mild tenderness related to surgery diffusely but no focal tenderness Extremity no clubbing, cyanosis or edema Extremity Narrative: Pedal pulses are 2+ Skin no rashes or lesions noted, skin turgor normal and no jaundice Skin Narrative: Postoperative wounds on abdomen as noted above Neuro oriented x3, CN's II-XII intact bilaterally, moves all extremities and no focal motor deficits Speech: speech normal Psych Psych Narrative: Affect is somewhat strange, interacts appropriately and eye contact is good Weight / BMI Weight Weight: 101.4 kg Body Mass Index (BMI) 30.2 ABG / Lab / Microbiology Data 09/29/23 06:40 09/29/23 06:40 Laboratory: Laboratory Results - last 24 hr 09/29/23 06:40: WBC 10.5, RBC 4.20 L, Hgb 12.3 L, Hct 37.1 L, MCV 88.3, MCH 29.3, MCHC 33.2, RDW Std Deviation 43.8, RDW Coeff of Akil 13.4, Plt Count 289, MPV 8.5, Immature Gran % (Auto) 4.500 H, Neut % (Auto) 73.5 H, Lymph % (Auto) 12 .4 L, [place] % (Auto) 8.0, Eos % (Auto) 1.1, Baso % (Auto) 0.5, Absolute Neuts (auto) 7.7, Absolute Lymphs (auto) 1.30, Nucleated RBC % 0, Sodium 137, Potassium 3.3 L, Chloride 104, Carbon Dioxide 30.0, Anion Gap 3 L, BUN 11, Creatinine 0.88, Estim Creat Clear Calc 101.75, Est GFR (MDRD) Af Amer 112, Est GFR (MDRD) Non-Af 92, BUN/Creatinine Ratio 12.5, Glucose 89, Calcium 8.3 L, Magnesium 2.0, Total Bilirubin 0.50, AST 25, ALT 108 H, Alkaline Phosphatase 92, Total Protein 6.0 L, Albumin 2.6 L, Globulin 3.4, Albumin/Globulin Ratio 0.8 L Radiography Diagnostic Testing: Radiology Impression Cholangiogram 09/28/23 16:10 IMPRESSION: No common bile duct stone. Electronically Signed: Agusto Howard MD at 21:03 EDT , D/C Instructions Discharge Diet: Light diet - advance as tolerated Meaningful Use Info Meaningful Use Meaningful Use Diagnoses (Choose all that apply): None applicable Ischemic Stroke Statin Dosing Therapy Reference: STATIN DOSE THERAPY REFERENCE: * Patients > 75 years receive moderate or high dose statin therapy. * Patients 75 years or YOUNGER should receive HIGH intensity statin dose unless contraindicated. You will be required to document reason for non-treatment if statin daily dose does not meet guidelines. HIGH DOSE STATIN THERAPY DAILY Atorvastatin > than or = to 40 mg Rosuvastatin > than or = to 20 mg Amlodipine + Atorvastatin > than or = to 2.5/40 mg Ezetimibe + Simvastatin 10/80 mg Simvastatin 80mg Discharge Plan Admission Admit Date/Time: 09/23/23 22:32 Primary Reason for Your Visit: Acute gallstone pancreatitis Attending Provider: Acacia Vargas Primary Care Provider: Sergio Watson Consulting Providers: Keshia Mustafa; Ignacio Mays; Brandi Sue Instructions Additional Instructions / Restrictions: Cholecystectomy Diet ? Start light with soups and soft bland foods. You may advance diet as tolerated. Activity ? You may drive in 3-5 days but not while taking narcotic pain medication. ? I encourage walking. You may go up steps, one at a time. ? Do not swim or use hot tubs for 2 weeks. ? For comfort, you may use warm compresses or ice as needed for 15-20 minutes at a time. Lifting ? You may lift up to 15 pounds for 2 weeks. Dressings/Incision ? You may shower OVER your plastic dressings starting tomorrow ? Do NOT tub bathe for 1 week ? Leave plastic dressings on for 1 day. ? When plastic dressings are removed, you will find steri strips. It is okay to continue showering with them in place, pat them dry. ? Leave steri-strips on until your follow-up appointment. Medications ? Anesthesia used during surgery and pain medications may cause constipation. I recommend initiating on the day of surgery a fiber supplement like, Metamucil, Citrucel, FiberCon, Benefiber, or a generic form of these medications. 1 heaping tablespoon in water daily. You may continue to utilize any bowel regimen or oral laxatives that you routinely take. You may also try Miralax, 1 tablespoon mixed with an 8 oz glass of water daily to assist with bowel movements. ? As long as you are not intolerant to Tylenol, acetaminophen, ibuprofen, Motrin, Advil, Aleve, or similar medications, I would recommend transitioning to these [id number] medicines as soon as possible instead of continued use of narcotic pain medication. Follow up ? You should call [facility] soon after surgery, at [phone] option 1 to make a follow up appointment for 10-14 days after your surgery. Discharge Orders/Prescriptions Prescriptions: New oxycodone 5 mg Tablet 5 mg PO Q6H PRN (Reason: pain) 3 Days Qty: 12 0RF Referrals / Follow Up: Ignacio Mays MD [Med Staff - Active Staff] - 10/12/23 (Please call our office to schedule an appointment for 10-14 days from your surgery) Friend,DO Juan [Med Staff - Active Staff] - 12/07/23 1:30 am Sergio Watson MD [Primary Care Provider] - Within 1 Month Disposition Disposition (needs filled in before D/C Order can be placed): Home, Self Care Charges/Coding Visit Charges Inpatient E&M: 99135 Disch Hosp >30min
--- NOTE | 2023-09-29 12:50 | CASEMGMT ---
RN CM into patient room, sitting up in bed eating lunch in no distress. at pt bedside. Pt denies needs going home. 6 clicks 22.
--- NOTE | 2023-09-29 14:23 | PHA.DC_ITS ---
Pharmacy [place] Med Reconciliation Pharmacy Service has performed discharge medication reconciliation for this patient. Medication education papers prepared, patient discharged before I was able to education counselor. The patient's discharge medication list was reviewed for discrepancies and discrepancies were resolved. Medications at Discharge Home Medications oxycodone 5 mg tablet 5 mg PO Q6H PRN pain 3 days #12 tabs 09/29/23
== END 2023-09-29 14:07 | disposition home or self-care (01) | DRG 417 ==
PROVIDERS: Anesthesiology; Internal Medicine Gastroenterology; Student in an Organized Health Care Education/Training Program; Surgery; Admitting Provider Family Medicine; PCP Family Medicine; Visit Provider Internal Medicine
PROC: 0FC98ZZ Extirpation of Matter from Common Bile Duct, Via Natural or Artificial Opening Endoscopic (ICD-10-PCS; CPT 43260; principal; 2023-09-24 13:10)
PROC: 0FT44ZZ Resection of Gallbladder, Percutaneous Endoscopic Approach (ICD-10-PCS; CPT 47610; principal; 2023-09-28 13:45)
DX: K80.43 Calculus of bile duct with acute cholecystitis with obstruction (principal); K85.10 Biliary acute pancreatitis without necrosis or infection; D64.9 Anemia, unspecified; K83.8 Other specified diseases of biliary tract; E87.6 Hypokalemia; K82.8 Other specified diseases of gallbladder; K42.9 Umbilical hernia without obstruction or gangrene; E66.9 Obesity, unspecified; R03.0 Elevated blood-pressure reading, without diagnosis of hypertension; Z68.30 Body mass index [BMI] 30.0-30.9, adult
CPT/HCPCS: 36415; 74300; 74330; 76000; 76705; 80053; 83690; 83735; 85025; 85610; 85730; 88304; 93005; 94668; 99252; J7030; J7050; J7120; A4216; G0463; J2405

== ENCOUNTER 2023-12-24 10:09 | Day surgery (SDC) | payer OTHER, SELFPAY ==
[2023-12-24] VITALS (8 sets, daily range): BP systolic 111–146; BP diastolic 75–86; PULSE 57–67; RESP 16; TEMP 36.1–36.6; O2SAT 92–97; BMI 36.2
--- NOTE | 2023-12-24 10:15 | RAD_ITS ---
STUDY: ERCP. REASON FOR EXAM: Male, 68 years old. Choledocholithiasis. FLUOROSCOPY TIME (if supplied): ( 1 minute and 27 seconds ) minutes/seconds. 30.54 mGy. 7 images were submitted. TECHNIQUE: An ERCP was performed by the income tax consultant. Fluoroscopic services provided. COMPARISON: None. FINDINGS: Removal of choledocholithiasis. RAD/ERCP Biliary/Pancreas IMPRESSION: Extraction of the choledocholithiasis. Electronically Signed: Dany Kidd MD at 12:33 EDT ,
--- NOTE | 2023-12-24 10:30 | PCM.PRE.AN2 ---
ASA Classification* ASA Classification ASA Classification: 2 Assessment & Plan Anesthesia* Anesthesia Assessment Anesthesia Assessment: Discussed sedation and/or anesthesia options, risks, benefits, and alternatives with patient/parents/legal guardian/POA. Questions invited. The patient/parents/legal guardian/POA seems to understand and agrees to proceed with anesthesia plan. Reviewed the physical assessment, medical history, allergy history and patient home medications list prior to surgery/procedure/anesthetic and documented any changes. Performed airway and anesthesia risk assessments. Anesthesia Type Anesthesia Type: General (see written pre anesthesia record for full assessment) Anesthesia Focused Assessment* Airway Assessment Mouth opens: >3 cm Mallampati Score: II Focused Labs Anesthesia Preop lab: CBC WBC 10.5 K/mm3 (4.4-11.0) 09/29/23 06:40 RBC 4.20 M/mm3 (4.6-6.2) L 09/29/23 06:40 Hgb 12.3 g/dL (13.0-16.5) L 09/29/23 06:40 Hct 37.1 % (40-54) L 09/29/23 06:40 Plt Count 289 K/mm3 (150-450) 09/29/23 06:40 CHEMISTRY Potassium 3.3 mmol/L (3.5-5.1) L 09/29/23 06:40 Sodium 137 mmol/L (136-145) 09/29/23 06:40 Magnesium 2.0 mg/dL (1.6-2.6) 09/29/23 06:40 BUN 11 mg/dL (7-18) 09/29/23 06:40 Creatinine 0.88 mg/dL (0.70-1.30) 09/29/23 06:40 Glucose 89 mg/dL (74-106) 09/29/23 06:40 COAG PT 14.9 SECONDS (11.7-14.9) 09/28/23 04:45 Pre-Assessment Diagnosis/Proposed Procedure Planned Operative Procedure(s): ERCP Anesthesia History 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 When Was Last Pacemaker Check QUESTION #4 FULL TEXT: You/Your Family Experience fever (hyperthermia) with Anesthesia Last Oral Intake Last Oral intake: Last Oral Intake NPO since Meds taken in AM with sips of water? 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 operator Female No 12/21/23 10:38 HX of Motion Sickness No 12/21/23 10:38 HX of N/V After Surgery No 12/21/23 10:38 Non-Smoker Yes 12/21/23 10:38 Duration of Surgery greater Yes 12/21/23 10:38 than 60 minutes Number of Risk Factors 2 12/21/23 10:38 PONV Score Moderate Risk 12/21/23 10:38 Height & Weight Height & Weight: Anesthesia: Height & Weight Height 6 ft 09/28/23 13:33 Respiratory Assessment Respiratory Assessment - cloth boil off machine operator: Respiratory Tract Infection Hx - cloth boil off machine operator Hx Respiratory Tract Infection No 12/21/23 10:38 STOP Sleep Apnea STOP Sleep Apnea - cloth boil off machine operator: STOP Sleep Apnea - cloth boil off machine operator Hx Hypertension No 12/21/23 10:38 Hx Sleep Apnea No 12/21/23 10:38 CPAP BIPAP Do you snore loudly (louder Yes 12/21/23 10:38 than talking or can be heard Do you often feel tired/ Yes 12/21/23 10:38 fatigued/ sleepy during daytime? Has anyone observed you stop No 12/21/23 10:38 breathing during sleep? STOP Results Positive 12/21/23 10:38 QUESTION #5 FULL TEXT : Do you snore loudly (louder than talking or can be heard through closed doors)? Tobacco Use History Tobacco Use History - cloth boil off machine operator: Tobacco Use History - cloth boil off machine operator Tobacco Use Smoking Status Never smoker 12/21/23 10:38 Hx Tobacco Use No 12/21/23 10:38 Years Smoking Packs Smoked per Day Smoking Cessation Date was within the last 15 years Hx Smoking Cessation Date Hx Smoking Cessation Counseling Hematologic Medial History Hematologic Hx - cloth boil off machine operator: Hematologic Medical Hx - uncrater Hx of Blood Transfusion No 12/21/23 10:38 Hx of Transfusion in last 3 No 12/21/23 10:38 Months Date of Last Transfusion (if within last 3 months) Ever experience any problems No 12/21/23 10:38 with transfusion(s)? Specify any problems Hx of Preganancy in last 3 N/A 12/21/23 10:38 Months [facility] 12/21/23 10:38 & Questions: Date: 12/21/23 12/21/23 10:38 Time: 10:40 12/21/23 10:38 Patient unable to answer at this time (ie. confused, unrespo /Reproduction History /Reproductive History - cloth boil off machine operator: /Reproductive Hx- cloth boil off machine operator Hx Now No 12/21/23 10:38 Gestational Age (in weeks): EDC: Hx Hx Para Hx Section SAB No 12/21/23 10:38 Active Medications Active Medications: Current Medications Generic Name Dose Route Start Last Admin Trade Name Freq PRN Reason Stop Dose Admin Lactated Ringer's 1,000 mls @ 15 mls/hr 12/24/23 10:30 IV .Q48H KORI PFSH Medical History Loss of hearing Wears glasses Wears dentures Non-smoker Leg cramps Kidney stones Speech impairment Home Medications ?Medication ?Instructions ?Recorded ?Last Taken ?Type NK 12/21/23 Unknown History Allergy/AdvReac Type Severity Reaction Status Date / Time No Known Allergies Allergy Verified 10/08/23 12:49 Family History Mother No problems noted. Father Heart disease Hypertension CAD (coronary artery disease) Myocardial infarction Surgical History Status post cholecystectomy S/P inguinal hernia repair Social History household members: spouse Smoking Status: Never smoker alcohol intake: never substance use type: does not use Review of Systems (Anesthesia) ROS Narrative System reviewed and no additional complaints, except as documented.
[2023-12-24] MEDS: Lactated Ringers 1,000 ML 15 ML IV (10:46)
--- NOTE | 2023-12-24 11:34 | PCM.HP.STD ---
HPI - General General Date of Admission: 12/24/23 Date of Service: 12/24/23 Chief Complaint: Choledocholithiasis, biliary stent placement HPI Narrative SOLEDAD GRIFFITHS, is a 68 M who presents Patient presents following laparoscopic cholecystectomy with intraoperative cholangiography on 09/29/2023. Since hospital discharge they have been doing very good. They report minimal postoperative pain and he shares that the pain was lifted that has been present for probably 7 or 8 years once his surgery was completed. They report tolerance of a diet. Concerning their bowel movements, they report that these have been better than they used to and he describes less loose bowel movements than before but a frequency of 3-4 times per day. He underwent elective cholecystectomy was COVID her retained cells. He underwent ERCP with stone removal and stent placement. He comes back today for stent removal. [facility] Medical History Loss of hearing Wears glasses Wears dentures Non-smoker Leg cramps Kidney stones Speech impairment Home Medications ?Medication ?Instructions ?Recorded ?Last Taken ?Type NK 12/21/23 Unknown History Allergy/AdvReac Type Severity Reaction Status Date / Time No Known Allergies Allergy Verified 12/24/23 10:42 Family History Mother No problems noted. Father Heart disease Hypertension CAD (coronary artery disease) Myocardial infarction Surgical History Status post cholecystectomy S/P inguinal hernia repair Social History household members: spouse Smoking Status: Never smoker alcohol intake: never substance use type: does not use ROS ROS Narrative Admission Review of Systems: CONSTITUTIONAL: No weight loss, fever, chills, + weakness or fatigue. HEENT: Eyes: No visual loss, blurred vision, double vision or yellow sclerae. Ears, Nose, Throat: No hearing loss, sneezing, congestion, runny nose or sore throat. SKIN: No rash or itching, lesions, wounds. CARDIOVASCULAR: No chest pain, chest pressure or chest discomfort, palpitations, edema, orthopnea, syncopal events. RESPIRATORY: No shortness of breath, cough or sputum, wheezing, hemoptysis. GASTROINTESTINAL: + anorexia, nausea, abdominal pain. No vomiting. No recent diarrhea (had prior), melena, BRBPR. GENITOURINARY: No dysuria, frequency, urgency or retention. NEUROLOGICAL: No headache, dizziness, syncope, paralysis, ataxia, numbness or tingling in the extremities, focal weakness, change in bowel or bladder control, seizure. MUSCULOSKELETAL: + muscle, back pain, joint pain or stiffness. HEMATOLOGIC: No anemia, bleeding or bruising. LYMPHATICS: No enlarged nodes. No history of splenectomy. PSYCHIATRIC: No history of depression or anxiety. ENDOCRINOLOGIC: No reports of sweating, cold or heat intolerance. No polyuria or polydipsia. ALLERGIES: No history of asthma, hives, eczema or rhinitis. Vital Signs Vital Signs Vital Signs: 12/24/23 10:43 12/24/23 10:43 Temperature 97.8 F Temperature Source Temporal Pulse Rate 57 L Respiratory Rate 16 Respiratory Pattern Normal Blood Pressure 146/86 H Blood Pressure Mean 106 Blood Pressure Source Monitor Blood Pressure Position Sitting Blood Pressure Location Left Arm Pulse Ox 97 Oxygen Delivery Method Room Air Weight Weight: 224 lb 6.889 oz Body Mass Index (BMI) 36.2 Results Lab / Micro Data Labs: Laboratory Results - last 24 hr 09/24/23 05:13: WBC 11.0, RBC 4.69, Hgb 14.1, Hct 41.9, MCV 89.3, MCH 30.1, MCHC 33.7, RDW Std Deviation 43.4, RDW Coeff of Akil 13.3, Plt Count 226, MPV 9.0, Immature Gran % (Auto) 0.500, Neut % (Auto) 86.7 H, Lymph % (Auto) 7.4 L, [place] % (Auto) 5.2, Eos % (Auto) 0.0, Baso % (Auto) 0.2, Absolute Neuts (auto) 9.6 H, Absolute Lymphs (auto) 0.82 L, Nucleated RBC % 0, Sodium 141, Potassium 3.9, Chloride 111 H, Carbon Dioxide 24.0, Anion Gap 6, BUN 16, Creatinine 1.03, Estim Creat Clear Calc 85.77, Est GFR (MDRD) Af Amer 93, Est GFR (MDRD) Non-Af 77, BUN/Creatinine Ratio 15.5, Glucose 125 H, Calcium 8.3 L, Total Bilirubin 5.40 H, AST 399 H, ALT 731 H, Alkaline Phosphatase 165 H, Total Protein 5.9 L, Albumin 3.4, Globulin 2.5, Albumin/Globulin Ratio 1.4, Lipase 3562 H Imaging Radiology Impression Gallbladder Ultrasound 09/23/23 23:12 IMPRESSION: Distended gallbladder with mild dependent sludge. No evidence of cholecystitis. Echogenic liver as can be seen with hepatic steatosis. Trace fluid along the right kidney which is nonspecific but can be seen with pyelonephritis. Correlate with urine. Electronically Signed: Todd Aguirre MD at 1:51 EDT , Assessment & Plan Assessment/Plan (1) Status post cholecystectomy: PLAN: He will undergo ERCP with stent removal. He was explained alternatives, risk and benefits including not withstanding bleeding, infection, sepsis, perforation, need for emergent urgent . Elevated ASA of 3.
--- NOTE | 2023-12-24 12:13 | OP.ERCP_ITS ---
Patient Name: Dajuan Zimmer Procedure Date: 12/24/2023 11:28 AM Date of : 1955 Age: 68 Procedure: ERCP Indications: Bile duct stone(s), Stent removal Providers: Juan Parmar DO Medicines: Monitored Anesthesia Care Patient Profile: This is a 68 year old male. Refer to note in patient chart for documentation of history and physical. Patient has symptoms. He is status post laparoscopic cholecystectomy. Complications: No immediate complications. Procedure: Pre-Anesthesia Assessment: - Prior to the procedure, a History and Physical was performed, and patient medications and allergies were reviewed. The patient is competent. The risks and benefits of the procedure and the sedation options and risks were discussed with the patient. All questions were answered and informed consent was obtained. Patient identification and proposed procedure were verified by the physician. Mental Status Examination: normal. Prophylactic Antibiotics: The patient does not require prophylactic antibiotics. Prior Anticoagulants: The patient has taken no anticoagulant or antiplatelet agents. After reviewing the risks and benefits, the patient was deemed in satisfactory condition to undergo the procedure. The anesthesia plan was to use monitored anesthesia care (MAC). Immediately prior to administration of medications, the patient was re-assessed for adequacy to receive sedatives. The heart rate, respiratory rate, oxygen saturations, blood pressure, adequacy of pulmonary ventilation, and response to care were monitored throughout the procedure. The physical status of the patient was re-assessed after the procedure. After obtaining informed consent, the scope was passed under direct vision. Throughout the procedure, the patient's blood pressure, pulse, and oxygen saturations were monitored continuously. The Duodenoscope was introduced through the mouth, and advanced to the duodenum and used to inject contrast into the bile duct and ventral pancreatic duct. The ERCP was accomplished without difficulty. The patient tolerated the procedure well. Scope In: 11:55:18 AM Scope Out: 12:05:44 PM Total Procedure Duration Time 0 hours 10 minutes 26 seconds Findings: The forestry technician film was normal. The esophagus was successfully intubated under direct vision. The scope was advanced to a normal major papilla in the descending duodenum without detailed examination of the pharynx, larynx and associated structures, and upper GI tract. The upper GI tract was grossly normal. The bile duct was deeply cannulated with the short-nosed traction sphincterotome. Contrast was injected. I personally interpreted the bile duct and pancreatic duct images. There was brisk flow of contrast through the ducts. Image quality was adequate. Contrast extended to the entire biliary tree. Opacification of the entire biliary tree except for the cystic duct and gallbladder was successful. The maximum diameter of the ducts was 10 mm. The lower third of the main bile duct and middle third of the main bile duct contained two stones, the largest of which was 6 mm in diameter. The main bile duct was diffusely dilated, acquired. The largest diameter was 10 mm. A cholecystectomy had been performed. A straight Roadrunner wire was passed into the biliary tree. A 5 mm biliary sphincterotomy was made with a monofilament traction (standard) sphincterotome using ERBE electrocautery. There was no post-sphincterotomy bleeding. The biliary tree was swept with a basket starting at the bifurcation. All stones were removed. One stent was removed from the biliary tree using a snare. The ventral pancreatic duct was deeply cannulated with the short-nosed traction sphincterotome. Contrast was injected. Opacification of the entire pancreatic ductal system was successful. The maximum diameter of the ducts was 2 mm. The entire opacified area was normal. The entire opacified area was normal. A long 0.025 inch Jagwire was passed into the ventral pancreatic duct. A 5 mm ventral pancreatic sphincterotomy was made with a traction (standard) sphincterotome using ERBE electrocautery. There was no post-sphincterotomy bleeding. Impression: - The entire main bile duct was dilated, acquired. - The patient has had a cholecystectomy. - Choledocholithiasis was found. Complete removal was accomplished by biliary sphincterotomy and basket extraction. - A biliary sphincterotomy was performed. - The biliary tree was swept. - One stent was removed from the biliary tree. - A pancreatic sphincterotomy was performed. Procedure Code(s): --- Professional --- 21955, Endoscopic retrograde cholangiopancreatography (ERCP); with removal of foreign body(s) or stent(s) from biliary/pancreatic duct(s) 26174, Endoscopic retrograde cholangiopancreatography (ERCP); with removal of calculi/debris from biliary/pancreatic duct(s) 80592, Endoscopic retrograde cholangiopancreatography (ERCP); with sphincterotomy/papillotomy 02007, Endoscopic retrograde cholangiopancreatography (ERCP); with sphincterotomy/papillotomy 15555, 26, Combined endoscopic catheterization of the biliary and pancreatic ductal systems, radiological supervision and interpretation CPT copyright 2021 [employer] [place] [employer]. All rights reserved. The codes documented in this report are preliminary and upon evp review may be revised to meet current compliance requirements. Juan Parmar DO 12/24/2023 12:12:54 PM This report has been signed electronically. Number of Addenda: 0 Note Initiated On: 12/24/2023 11:28 AM
--- NOTE | 2023-12-24 12:13 | OP.CCLET_ITS ---
12/24/2023 Sergio Watson Re : ERCP procedure for Dajuan Jenkins Walter This procedure was performed on December. My impressions and recommendations are as follows: Impressions : - The entire main bile duct was dilated, acquired. - The patient has had a cholecystectomy. - Choledocholithiasis was found. Complete removal was accomplished by biliary sphincterotomy and basket extraction. - A biliary sphincterotomy was performed. - The biliary tree was swept. - One stent was removed from the biliary tree. - A pancreatic sphincterotomy was performed. Recommendations : My findings are described in the full procedure note, which is enclosed. If I can be of further assistance, please feel free to contact me at . Sincerely, Juan Parmar, 12/24/2023 12:12:54 PM This report has been signed electronically.
--- NOTE | 2023-12-24 12:23 | PCM.POST.ANE ---
Anesthesia: Postop Eval I Current Vital Signs Temperature: 97.6 F Pulse Rate: 67 Blood Pressure: 114/78 Respiratory Rate: 16 Pulse Ox: 93 Oxygen Delivery Method: Room Air Assessment Airway patent: Yes Spontaneous unlabored respirations: Yes Mental status: Asleep nausea: No Vomiting: No Anesthesia Complication: No Fluid Hydration Crystalloid volume administer (ml): 1,000 Total IV fluid infused: 1,000 Progress Note Anesthesia document: Postop Eval 1 completed: Yes
--- NOTE | 2023-12-24 13:48 | PCM.POSTANE2 ---
Anesthesia Postop Eval I Sum Postop Eval Completion status Anesthesia document: Postop Eval 1 completed: Yes Anesthesia Postop Eval I Summary Anesthesia Postop Eval I Summary: Anesthesia Postop Eval I: Assessment Summary Airway patent Yes 12/24/23 12:23 [email or web address] Spontaneous unlabored Yes 12/24/23 12:23 [email or web address] respirations Mental status Asleep 12/24/23 12:23 [email or web address] nausea No 12/24/23 12:23 [email or web address] Vomiting No 12/24/23 12:23 [email or web address] Anesthesia Postop Eval I: Fluid Summary Crystalloid volume administer 1,000 12/24/23 12:23 [email or web address] (ml) Colloids volume administered ( ml) Blood Product volume administered (ml) Total IV fluid infused 1,000 12/24/23 12:23 [email or web address] Anesthesia Postop Eval I: Summary Notes Anesthesia Complication No 12/24/23 12:23 [email or web address] Anesthesia Complication Comment: Post-operative progress note Anesthesia: Postop Eval II Evaluation Mental status: Awake Pain Level: 0 nausea: No Vomiting: No
== END 2023-12-24 13:13 | disposition home or self-care (01) ==
LOC: EN 10:13 → AC 10:14
PROVIDERS: PCP Family Medicine; Referring Provider Family Medicine; Visit Provider Internal Medicine Gastroenterology
PROC: (CPT 43260; principal; 2023-12-24 10:55)
DX: K80.50 Calculus of bile duct without cholangitis or cholecystitis without obstruction (principal); K83.8 Other specified diseases of biliary tract
CPT/HCPCS: 43275; 43264; 43262; 74330; 76000; J7120; J2405